=== PATIENT | male | born 1950 | race Two or more races ===

== ENCOUNTER 2025-07-14 18:24 | Inpatient (IN) | payer MEDICARE, MEDICAID ==
[~2025-07-14] VITALS: Ht 182.9 cm; Wt 85.4 kg
[2025-07-14 19:06] LABS: Hematocrit 42.0 % (41.0-53.0); Hemoglobin 14.2 g/dL (13.5-17.5); Mean Corpuscular Hemoglobin 33.5 pg (28.0-32.0); Mean Corpuscular Volume 98.6 fL (80.0-100.0); Nucleated Red Blood Cells % 0.2 %
--- NOTE | 2025-07-14 19:06 | ED.PDOC ---
HPI Comments 75 year old male presents to the ED via EMS with a chief complaint of chest pain. Patient states he had the flu about 1 week ago, since then has been experiencing intermittent chest pain and shortness of breath, fatigue. Patient currently lives in an assisted living facility, shared with staff his symptoms, called 911. Upon EMS arrival, EKG was abnormal, possible STEMI. Upon ED arrival, EKG was repeated, sent to Marketing Operations Specialist Dr. Talbot, recommended observation of patient. Denies dizziness, headache, nausea, vomiting, fever, chills, numbness/tingling, weakness. No other symptoms or modifying factors present at this time. Chief Complaint: Chest Pain Time Seen by MD: 18:55 Reviewed Notes: Medications, Allergies Allergies: Coded Allergies: NO KNOWN ALLERGIES (Unverified , 07/14/25) Information Source: Patient, Emergency Med Personnel Mode of Arrival: EMS Severity: Moderate Timing: Weeks Duration: Since onset Prehospital treatment: None Location: Chest (L) Onset: At Rest Cardiac Risk Factors: None PE Risk Factors: None History of: None Modifying Factors: Nothing Associated Signs and Symptoms: SOB Past Medical History PAST MEDICAL HISTORY: Denies Surgical History: Denies all surgeries Family History Family History: Reviewed,noncontributory to illness, No family hx of Cancer, No family hx of DM, No family hx of Heart armida, No family hx of HTN, No family hx ofKidney armida, No family hx of Liver armida, No family hx of Lung armida, No family hx of Stroke Social History Smoker: Non-Smoker Alcohol: Denies ETOH Use Drugs: Denies Drug Use Lives In: Assisted Care Constitutional: reports: fatigue; denies: chills, diaphoresis, fever, malaise, sweats, weakness, others EENTM: denies: blurred vision, double vision, ear bleeding, ear discharge, ear drainage, ear pain, ear ringing, eye pain, eye redness, hearing loss, mouth pain, mouth swelling, nasal discharge, nose bleeding, nose congestion, nose pain, photophobia, tearing, throat pain, throat swelling, voice changes, others Respiratory: reports: shortness of breath; denies: cough, hemoptysis, orthopnea, SOB at rest, SOB with excertion, stridor, wheezing, others Cardiovascular: reports: chest pain; denies: dizzy spells, diaphoresis, Dyspnea on exertion, edema, irregular heart beat, left arm pain, lightheadedness, palpitations, PND, syncope, others Gastrointestinal: denies: abdomen distended, abdominal pain, blood streaked bowels, constipated, diarrhea, dysphagia, difficulty swallowing, hematemesis, melena, nausea, poor appetite, poor fluid intake, rectal bleeding, rectal pain, vomiting, others Genitourinary: denies: burning, dysuria, flank pain, frequency, hematuria, incontinence, penile discharge, penile sore, pain, testicle pain, testicle swelling, urgency, others Neurological: denies: dizziness, fainting, headache, left sided numbness, left sided weakness, numbness, paresthesia, pre-existing deficit, right sided numbness, right sided weakness, seizure, speech problems, tingling, tremors, weakness, others Musculoskeletal: denies: back pain, gout, joint pain, joint swelling, muscle pain, muscle stiffness, neck pain, others Integumetry: denies: bruises, change in color, change in hair/nails, dryness, laceration, lesions, lumps, rash, wounds, others Allergic/Immunocompromised: denies: Difficulty Healing, Frequent Infections, Hives, Itching, others Hematologic/Lymphatic: denies: anemia, blood clots, easy bleeding, easy bruising, swollen glands, others Endocrine: denies: excessive hunger, excessive sweating, excessive thirst, excessive urination, flushing, intolerance to cold, intolerance to heat, unexplained weight gain, unexplained weight loss, others Psychiatric: denies: anxiety, bipolar disorder, depression, hopeless, panic disorder, schizophrenia, sleepless, suicidal, others All Other Systems: Reviewed and Negative Physical Exam General Appearance: Normal HEENT: Normal ENT Inspection, Pharynx Normal, TMs Normal Neck: Full Range of Motion, Non-Tender, Normal, Normal Inspection Respiratory: Chest Non-Tender, Lungs Clear, No Accessory Muscle Use, No Respiratory Distress, Normal Breath Sounds Cardiovascular: No Edema, No JVD, No Murmur, No Gallop, Normal Peripheral Pulse s, Regular Rate/Rhythm Breast Exam: Deferred Gastrointestinal: No Organomegaly, Non Tender, No Pulsatile Mass, Normal Bowel Sounds, Soft Genitalia: Deferred Pelvic: Deferred Rectal: Deferred Extremities: No calf tenderness, Normal capillary refill, Normal inspection, Normal range of motion, Non-tender, No pedal edema Musculoskeletal : Apperance: Normal Neurologic: Alert, button tufting machine operator II-XII nml as Tested, No Motor Deficits, Normal Affect, Normal Mood, No Sensory Deficits Cerebellar Function: Normal Reflexes: Normal Skin: Dry, Normal Color, Warm Lymphatic: No Adenopathy Was a procedure done? Was a procedure done?: No CP Differential Dx Differential Diagnosis: A-fib, A-Flutter, Angina, Anxiety / Panic Attack, Digoxin Toxicity, Electrolyte Disorder, Heart Failure, Hyperthyroidism, Hyperventilation, Hypoxia, MAT, [place], V-Fib, V-Tach, Other X-Ray, Labs, Meds, VS Vital Signs Date Time Temp Pulse Resp B/P (MAP) Pulse Ox O2 Delivery O2 Flow Rate FiO2 07/14/25 20:08 97 123/82 07/14/25 19:34 105 07/14/25 19:25 97.6 97 26 123/82 (96) 95 97.6 07/14/25 19:25 97 26 95 Room Air* 0 21 07/14/25 19:00 98.9 114 30 129/78 (95) 93 98.9 07/14/25 18:30 98.1 100 22 126/88 98 98.1 07/14/25 18:29 108 Lab Test 07/14/25 19:53 07/14/25 18:49 Range/Units Troponin I High Sensitivity 110 *H 107 *H </=54 ng/L White Blood Count 6.4 4.4-10.8 10^3/uL Red Blood Count 4.26 L 4.5-5.90 10^6/uL Hemoglobin 14.2 13.5-17.5 g/dL Hematocrit 42.0 41.0-53.0 % Mean Corpuscular Volume 98.6 80.0-100.0 fL Mean Corpuscular Hemoglobin 33.5 H 28.0-32.0 pg Mean Corpuscular Hemoglobin Concent 33.9 32.0-36.0 g/dL Red Cell Distribution Width 14.2 11.8-14.3 % Platelet Count 149 140-450 10^3/uL Mean Platelet Volume 8.7 6.9-10.8 fL Neutrophils (%) (Auto) 58.1 37.0-80.0 % Lymphocytes (%) (Auto) 29.9 10.0-50.0 % Monocytes (%) (Auto) 8.8 0.0-12.0 % Eosinophils (%) (Auto) 1.9 0.0-7.0 % Basophils (%) (Auto) 1.3 0.0-2.0 % Neutrophils # (Auto) 3.7 1.6-8.6 10 ^3/uL Lymphocytes # (Auto) 1.9 0.4-5.4 10 ^3/uL Monocytes # (Auto) 0.6 0-1.3 10 ^3/uL Eosinophils # (Auto) 0.1 0-0.8 10 ^3/uL Basophils # (Auto) 0.1 0-0.2 10 ^3/uL Nucleated Red Blood Cells 0.2 % Prothrombin Time 12.6 H 9.3-11.8 sec Prothrombin Time INR 1.21 H 0.9-1.15 Activated Partial Thromboplast Time 28.4 24.5-34.5 SEC Sodium Level 143 136-145 mmol/L Potassium Level 4.5 3.5-5.1 mmol/L Chloride Level 112 H 98-107 mmol/L Carbon Dioxide Level 21 20-31 mmol/L Anion Gap 10 5-15 Blood Urea Nitrogen 24 H 9-23 mg/dL Creatinine 1.35 H 0.700-1.30 mg/dL Glomerular Filtration Rate Calc 55 >90 mL/min BUN/Creatinine Ratio 17.8 10.0-20.0 Serum Glucose 134 H 74-106 mg/dL Calcium Level 9.0 8.7-10.4 mg/dL Total Bilirubin 0.8 0.2-1.0 mg/dL Aspartate Amino Transferase (AST) 33 13-40 U/L Alanine Aminotransferase (ALT) 36 7-40 U/L Alkaline Phosphatase 83 46-116 U/L B-Type Natriuretic Peptide 1794.20 0-100 pg/mL Total Protein 6.5 5.7-8.2 g/dL Albumin 3.9 3.2-4.8 g/dL Current Medications Medications (Trade) Dose Ordered Sig/Efrain Route Start Time Stop Time Status Last Admin Metoprolol Tartrate (Lopressor) 5 mg Q15M ONCE IV 07/14/25 18:45 07/14/25 18:47 DC 07/14/25 20:08 Aspirin 81 mg ONCE ONCE PO 07/14/25 19:00 07/14/25 19:01 DC 07/14/25 19:[address] [address] Ph: [phone] DIAGNOSTIC IMAGING Diagnostic Imaging Report : [id number] Signed PATIENT: RANDEE MARSH ACCT: [id number] UNIT: [id number] : 1950 LOC: ER ROOM / BED: / AGE / SEX: 75 / M ADM STATUS: REG ER SERVICE 44 ORDERING PHYSICIAN: TELMA PEÑA MD PROCEDURE(s): CXRP - CHEST PORTABLE REASON: SOB ORDER NUMBER(s): [id number], ACCESSION NUMBER(s): [id number] CHEST RADIOGRAPH Indication: SOB Technique: Single frontal view of the chest was obtained Comparison: XR CHEST 1 VIEW on DOS: 04/01/23 FINDINGS: Lines and Tubes: None Lungs: Costophrenic angles are not included on this study. Mildly prominent bronchovascular markings are noted in the right upper lung field and left lower lung field. There are no prior studies for comparison to determine acute versus chronic disease. Pleura: No effusion. No pneumothorax. Cardiomediastinal contours: Cardiac size appears to be at the upper limits of normal. Bones: No acute osseous abnormality. IMPRESSION: 1. Mildly prominent bronchovascular markings right upper lung field and right lower lung field. 2. Cardiac size is appears to be at the upper limits of normal. 3. No comparison studies for available. Findings may represent normal for the patient or congestive failure. Correlate with clinical setting. ATED BY: ELIAZAR AMBROSIO Jr., DO DICTATED DATE/TIME: 07/14/251913 SIGNED BY: ELIAZAR AMBROSIO Jr., SIGNED DATE/TIME: 07/14/251913 CC: Time of 1ST Reevaluation: 19:25 Reevaluation 1ST: Unchanged Patient Education/Counseling: Diagnosis, Treatment, Prognosis Family Education/Counseling: No Family Present SEPSIS Sepsis Screen Date sepsis recognized/suspect: Jul 14, 2025 Time Sepsis recognized/suspect: 183 Recent Procedure: No On Antibiotic Therapy: No Respiratory Rate >20: No Heart Rate >90: Yes Temp<36 C (96.8 F) or >38.3 C: No SBP <90 or MAP <65 mmHG: No New Acute Mental Status Change: No Is the patient on CPAP, BIPAP,: No Physician Orders Electrocardigram (07/14/25 18:37) Chest Portable (07/14/25 18:45) Troponin-I Hs (07/14/25 21:45) Vital Signs Date Time Temp Pulse Resp B/P (MAP) Pulse Ox O2 Delivery O2 Flow Rate FiO2 07/14/25 20:08 97 123/82 07/14/25 19:34 105 07/14/25 19:25 97.6 97 26 123/82 (96) 95 97.6 07/14/25 19:25 97 26 95 Room Air* 0 21 07/14/25 19:00 98.9 114 30 129/78 (95) 93 98.9 07/14/25 18:30 98.1 100 22 126/88 98 98.1 07/14/25 18:29 108 Laboratory Tests Test 07/14/25 18:49 White Blood Count 6.4 10^3/uL (4.4-10.8) Medications Medications Dose Ordered Sig/Efrain Route Start Time Stop Time Status Last Admin Dose Admin Aspirin 81 mg ONCE ONCE PO 07/14/25 19:00 07/14/25 19:01 DC 07/14/25 19:45 Metoprolol Tartrate 5 mg Q15M ONCE IV 07/14/25 18:45 07/14/25 18:47 DC 07/14/25 20:08 Departure 1 Departure Time of Disposition: 20:51 Impression: Primary Impression: Atrial fibrillation Additional Impression: Acute coronary syndrome with high troponin Disposition: ADMITTED INPATIENT Admit to: Tele Condition: Guarded Comments 75 year old male with SOB and chest tightness, noted to be in A-fib with LBBB, also later T wave depressions on EKG. Reviewed with cardiology Dr Talbot who recommends rate control and admission. given aspirin and metoprolol. initial troponins elevated Critical Care Note Critical Care Time?: Yes (35 min-critical care time only) Critical care comment: Total critical care time: Approximately 36 minutes Due to a high probability of clinically significant, life threatening deterioration, the patient required my highest level of preparedness to intervene emergently and I personally spent this critical care time directly and personally managing the patient. This critical care time included obtaining a history; examining the patient; pulse oximetry; ordering and review of studies; arranging urgent treatment with development of a management plan; evaluation of patient's response to treatment; frequent reassessment; and, discussions with other providers. This critical care time was performed to assess and manage the high probability of imminent, life-threatening deterioration that could result in multi-organ failure. It was exclusive of separately billable procedures and treating other patients. Stability Stability form required: No Heart Score Heart Score: Heart Score Response (Comments) Value History Moderate Suspicious [address]-Deviation 2 Age >65 2 Risk Factors 1 or 2 risk factors 1 Troponin 1-2 x's Normal limit 1 Total 7 I personally scribed for TELMA PEÑA MD ([email or web address]) on 07/14/25 at 19:06. Electronically submitted by Georgia Simpson ([email or web address]). I personally scribed for TELMA PEÑA MD ([email or web address]) on 07/14/25 at 19:37. Electronically submitted by Georgia Smipson ([email or web address]). TELMA PEÑA MD Jul 14, 2025 19:06
--- NOTE | 2025-07-14 19:17 | DVH ---
CHEST RADIOGRAPH Indication: SOB Technique: Single frontal view of the chest was obtained Comparison: XR CHEST 1 VIEW on DOS: 04/01/23 FINDINGS: Lines and Tubes: None Lungs: Costophrenic angles are not included on this study. Mildly prominent bronchovascular markings are noted in the right upper lung field and left lower lung field. There are no prior studies for comparison to determine acute versus chronic disease. Pleura: No effusion. No pneumothorax. Cardiomediastinal contours: Cardiac size appears to be at the upper limits of normal. Bones: No acute osseous abnormality. IMPRESSION: 1. Mildly prominent bronchovascular markings right upper lung field and right lower lung field. 2. Cardiac size is appears to be at the upper limits of normal. 3. No comparison studies for available. Findings may represent normal for the patient or congestive failure. Correlate with clinical setting.
[2025-07-14 19:21] LABS: INR 1.21 (0.9-1.15); Partial Thromboplastin Time 28.4 SEC (24.5-34.5); Prothrombin Time 12.6 sec (9.3-11.8)
[2025-07-14 19:25] VITALS: PULSE 97; RESP 26; O2SAT 95
[2025-07-14 19:27] LABS: Alanine Aminotransferase 36 U/L (7-40); Albumin 3.9 g/dL (3.2-4.8); Alkaline Phosphatase 83 U/L (46-116); Anion Gap 10 (5-15); BUN/Creatinine Ratio 17.8 (10.0-20.0); Calcium 9.0 mg/dL (8.7-10.4); Carbon Dioxide 21 mmol/L (20-31); Potassium 4.5 mmol/L (3.5-5.1); Sodium 143 mmol/L (136-145); Total Protein 6.5 g/dL (5.7-8.2)
[2025-07-14 19:28] LABS: Bilirubin, Total 0.8 mg/dL (0.2-1.0); Blood Urea Nitrogen 24 mg/dL (9-23); Chloride 112 mmol/L (98-107); Glucose 134 mg/dL (74-106)
[2025-07-14] MEDS: METOPROLOL TARTRATE 1MG/1ML-5ML VIAL IV ONE (20:08)
[2025-07-14] MEDS ORDERED: MORPHINE SULFATE INJ 2 MG/ml SYRG IV PRN (21:00)
[2025-07-14] MEDS ORDERED: HYDROcodone-ACET 5/325MG TAB PO PRN (21:00)
[2025-07-14] MEDS ORDERED: NITROGLYCERIN 0.4 MG SL TAB SL PRN (21:00)
[2025-07-14] MEDS ORDERED: ACETAMINOPHEN 325 MG TAB PO PRN (21:00)
--- NOTE | 2025-07-14 21:02 | DVHHP2 ---
History of Present Illness HPI 75 year old male presents to the ED via EMS with a chief complaint of chest pain. Patient states he had the flu about 1 week ago, since then has been experiencing intermittent chest pain and shortness of breath, fatigue. Patient currently lives in an assisted living facility, shared with staff his symptoms, called 911. Upon EMS arrival, EKG was abnormal, possible STEMI. Upon ED arrival, EKG was repeated, sent to Driver Utility Worker Dr. Talbot, recommended observation of patient. Denies dizziness, headache, nausea, vomiting, fever, chills, numbness/tingling, weakness. No other symptoms or modifying factors present at this time. Home Meds Reported Medications Quetiapine Fumerate (Seroquel) 50 Mg Tab, 1 TAB PO TID, #30 TAB 2 Refills 07/15/25 Famotidine (PEPCID TABLET) 20 Mg Tb, 1 TAB PO DAILY, #60 TAB 5 Refills 07/15/25 Tamsulosin Hcl (Flomax) 0.4 Mg Cap, CAP PO DAILY, #30 CAP 11 Refills 07/15/25 Divalproex Sodium (Depakote) 250 Mg Tab, 1 TAB PO BID, #60 TAB 2 Refills 07/15/25 Review of Systems Constitutional: No symptom reported Eyes: No symptom reported Pulmonary/Respiratory: No symptom reported Cardiovascular: No symptom reported Gastrointestinal: No symptom reported Genitourinary: No symptom reported H&P Exam Vital Signs Vital Signs Date Time Temp Pulse Resp B/P (MAP) Pulse Ox O2 Delivery O2 Flow Rate FiO2 07/14/25 20:08 97 123/82 07/14/25 19:25 97.6 26 95 97.6 07/14/25 19:25 Room Air* 0 21 General Appeara: Well developed, Well nourished, Normal Appearance Head Exam: Normal inspection Neck Exam: Normal inspection SEPSIS Sepsis Screen Date sepsis recognized/suspect: Jul 14, 2025 Time Sepsis recognized/suspect: 1924 Recent Procedure: No On Antibiotic Therapy: No Respiratory Rate >20: Yes Heart Rate >90: No Temp<36 C (96.8 F) or >38.3 C: No SBP <90 or MAP <65 mmHG: No New Acute Mental Status Change: No Is the patient on CPAP, BIPAP,: No Physician Orders Electrocardigram (07/14/25 18:37) Chest Portable (07/14/25 18:45) Troponin-I Hs (07/14/25 21:45) Admit (07/14/25 21:00) Code Status (07/14/25 21:00) Hydrocodone-Acet 5/325mg Tab ([place] /32 (07/14/25 21:00) Fall Risk Precautions In Place QSHIFT (07/14/25 21:00) Complete Blood Count (07/15/25 04:00) Comprehensive Metabolic Panel (07/15/25 04:00) Condition: Serious (07/14/25 21:00) Acetaminophen Tablet (Tylenol Tablet) (07/14/25 21:00) Morphine Sulfate Injection (07/14/25 21:00) Lovenox 40mg (07/14/25 21:00) Nitroglycerin Sublingual (Ntrostat Subli (07/14/25 21:00) Morphine Sulfate Injection (07/14/25 21:00) Stat Ekg For Chest Pain (07/14/25 21:00) Notify Md Of Changes From Base (07/14/25 21:00) Hydrogen Braze Furnace Operator For 24 Hours (07/14/25 21:00) Emergency Dysrhythmia Protocol (07/14/25 21:00) Rhythm Strips Once Every Shift (07/14/25 21:00) Vital Signs Date Time Temp Pulse Resp B/P (MAP) Pulse Ox O2 Delivery O2 Flow Rate FiO2 07/14/25 20:08 97 123/82 07/14/25 19:34 105 07/14/25 19:25 97.6 97 26 123/82 (96) 95 97.6 07/14/25 19:25 97 26 95 Room Air* 0 21 07/14/25 19:00 98.9 114 30 129/78 (95) 93 98.9 07/14/25 18:30 98.1 100 22 126/88 98 98.1 07/14/25 18:29 108 Laboratory Tests Test 07/14/25 18:49 White Blood Count 6.4 10^3/uL (4.4-10.8) Medications Medications Dose Ordered Sig/Efrain Route Start Time Stop Time Status Last Admin Dose Admin Aspirin 81 mg ONCE ONCE PO 07/14/25 19:00 07/14/25 19:01 DC 07/14/25 19:45 81 MG Metoprolol Tartrate 5 mg Q15M ONCE IV 07/14/25 18:45 07/14/25 18:47 DC 07/14/25 20:08 5 MG Labs/Xrays Labs Test 07/14/25 19:53 07/14/25 18:49 Range/Units Troponin I High Sensitivity 110 *H </=54 ng/L White Blood Count 6.4 4.4-10.8 10^3/uL Red Blood Count 4.26 L 4.5-5.90 10^6/uL Hemoglobin 14.2 13.5-17.5 g/dL Hematocrit 42.0 41.0-53.0 % Mean Corpuscular Volume 98.6 80.0-100.0 fL Mean Corpuscular Hemoglobin 33.5 H 28.0-32.0 pg Mean Corpuscular Hemoglobin Concent 33.9 32.0-36.0 g/dL Red Cell Distribution Width 14.2 11.8-14.3 % Platelet Count 149 140-450 10^3/uL Mean Platelet Volume 8.7 6.9-10.8 fL Neutrophils (%) (Auto) 58.1 37.0-80.0 % Lymphocytes (%) (Auto) 29.9 10.0-50.0 % Monocytes (%) (Auto) 8.8 0.0-12.0 % Eosinophils (%) (Auto) 1.9 0.0-7.0 % Basophils (%) (Auto) 1.3 0.0-2.0 % Neutrophils # (Auto) 3.7 1.6-8.6 10 ^3/uL Lymphocytes # (Auto) 1.9 0.4-5.4 10 ^3/uL Monocytes # (Auto) 0.6 0-1.3 10 ^3/uL Eosinophils # (Auto) 0.1 0-0.8 10 ^3/uL Basophils # (Auto) 0.1 0-0.2 10 ^3/uL Nucleated Red Blood Cells 0.2 % Prothrombin Time 12.6 H 9.3-11.8 sec Prothrombin Time INR 1.21 H 0.9-1.15 Activated Partial Thromboplast Time 28.4 24.5-34.5 SEC Sodium Level 143 136-145 mmol/L Potassium Level 4.5 3.5-5.1 mmol/L Chloride Level 112 H 98-107 mmol/L Carbon Dioxide Level 21 20-31 mmol/L Anion Gap 10 5-15 Blood Urea Nitrogen 24 H 9-23 mg/dL Creatinine 1.35 H 0.700-1.30 mg/dL Glomerular Filtration Rate Calc 55 >90 mL/min BUN/Creatinine Ratio 17.8 10.0-20.0 Serum Glucose 134 H 74-106 mg/dL Calcium Level 9.0 8.7-10.4 mg/dL Total Bilirubin 0.8 0.2-1.0 mg/dL Aspartate Amino Transferase (AST) 33 13-40 U/L Alanine Aminotransferase (ALT) 36 7-40 U/L Alkaline Phosphatase 83 46-116 U/L B-Type Natriuretic Peptide 1794.20 0-100 pg/mL Total Protein 6.5 5.7-8.2 g/dL Albumin 3.9 3.2-4.8 g/dL Assessment/Plan Primary Diagnosis 75 year old male presents to the ED via EMS with a chief complaint of chest pain. Patient states he had the flu about 1 week ago, since then has been experiencing intermittent chest pain and shortness of breath, fatigue. Patient currently lives in an assisted living facility, shared with staff his symptoms, called 911. Upon EMS arrival, EKG was abnormal, possible STEMI. Upon ED arrival, EKG was repeated, sent to Driver Utility Worker Dr. Talbot, recommended observation of patient. Denies dizziness, headache, nausea, vomiting, fever, chills, numbness/t ingling, weakness. No other symptoms or modifying factors present at this time. afib hypoxia LBBB ckd htn HLD suspected NSTEMI chest pain admitted to tele consult to cardiology pain control Plan discussed with: Patient SERA LANGSTON Jul 14, 2025 21:02
[2025-07-14] MEDS: ENOXAPARIN SOD 40 MG/0.4 ML SYRINGE SC SCH (21:25)
[2025-07-14 23:01] VITALS: BP 109/78; PULSE 109; RESP 18; TEMP 96.6; O2SAT 2; O2SAT 97
[2025-07-14] MEDS ORDERED: guaiFENesin-DM 100/10mg/5ml SYR PO PRN (23:45)
[2025-07-15] VITALS (7 sets, daily range): BP systolic 105–126; BP diastolic 73–83; PULSE 60–125; RESP 18–20; TEMP 97.6–98.6; O2SAT 92–98
[2025-07-15] MEDS ORDERED: guaiFENesin-DM 100/10mg/5ml SYR PO PRN
[2025-07-15] MEDS: guaiFENesin-DM 100/10mg/5ml SYR PO PRN (00:26)
[2025-07-15] MEDS ORDERED: FAMO20TA10 PO (00:48)
[2025-07-15] MEDS ORDERED: DIVA-139 PO (00:48)
[2025-07-15] MEDS ORDERED: TAMS-35 PO (00:48)
[2025-07-15] MEDS ORDERED: QUET50TA PO (00:50)
--- NOTE | 2025-07-15 05:13 | ECG ---
[facility] Test Date: 2025-07-14 Test Time: 19:34:00 Pat Name: RANDEE MARSH Department: ED Room: 0238T Gender: M Ancillary Specialist: YOHANA : 1950 Requested By: TELMA PEÑA Order Number: [id number] Reading MD: Lamine Talbot Measurements Intervals [place] Rate: 105 P: 0 MS: 0 QRS: -71 QRSD: 163 T: 105 QT: 399 QTc: 528 Interpretive Statements Atrial fibrillation LVH with IVCD, LAD and secondary repol abnrm Inferior infarct, acute (RCA) Prolonged QT interval Probable RV involvement, suggest recording right precordial leads Electronically Signed On 07-20-2025 14:46:03 PST by Lamine Talbot Please click the below link to view image of tracing.
[2025-07-15] MEDS ORDERED: HALOPERIDOL LACTATE 5 MG/ML INJ VIAL IV PRN (05:30)
[2025-07-15] MEDS: LORazepam 2MG/ML-1ML VIAL IV PRN ×2 (06:06→14:11)
[2025-07-15 06:21] LABS: Albumin 4.1 g/dL (3.2-4.8); Alkaline Phosphatase 84 U/L (46-116); Anion Gap 13 (5-15); BUN/Creatinine Ratio 22.4 (10.0-20.0); Bilirubin, Total 0.9 mg/dL (0.2-1.0); Calcium 9.4 mg/dL (8.7-10.4); Glucose 76 mg/dL (74-106); Sodium 143 mmol/L (136-145); Total Protein 6.7 g/dL (5.7-8.2)
[2025-07-15 06:27] LABS: Alanine Aminotransferase 40 U/L (7-40); Blood Urea Nitrogen 30 mg/dL (9-23); Carbon Dioxide 17 mmol/L (20-31); Chloride 113 mmol/L (98-107); Potassium 5.3 mmol/L (3.5-5.1)
[2025-07-15 11:53] LABS: Hematocrit 44.1 % (41.0-53.0); Hemoglobin 14.7 g/dL (13.5-17.5); Mean Corpuscular Hemoglobin 33.0 pg (28.0-32.0); Mean Corpuscular Volume 98.9 fL (80.0-100.0); Nucleated Red Blood Cells % 0.2 %
[2025-07-15] MEDS ORDERED: LORazepam 2MG/ML-1ML VIAL IV PRN (13:15)
[2025-07-15] MEDS: ALPRAZolam 0.5 MG TAB PO PRN (16:33)
[2025-07-15] MEDS: NICOTINE 14 MG/24HR TOPICAL PATCH TD ONE (17:28)
[2025-07-15] MEDS: MUPIROCIN 2% OINT 15gm or 22gm FOR MRSA NARES EACHNOSTRI SCH (21:51)
--- NOTE | 2025-07-15 22:50 | DVHPN2 ---
Progress Note Date Seen: Jul 15, 2025 Medical Necessity Reason Pt with a Central, PICC or Fol: No Objective vital signs Vital Sign Date Time Temp Pulse Resp B/P (MAP) Pulse Ox O2 Delivery O2 Flow Rate FiO2 07/15/25 16:53 97.9 60 18 119/73 (88) 98 97.9 07/15/25 10:45 Nasal Cannula* 2 28 Total Intake and Output 07/14/25 07/14/25 07/15/25 15:00 23:00 07:00 Intake Total 250 ml Balance 250 ml medications Current Medications Medications Dose Ordered Sig/Efrain Route Start Time Stop Time Status Last Admin Dose Admin Acetaminophen/ Hydrocodone Bitart 1 tab Q4HP PRN PO 07/14/25 21:00 Acetaminophen 650 mg Q6HP PRN PO 07/14/25 21:00 Morphine Sulfate 2 mg Q4HPRN PRN IV 07/14/25 21:00 Enoxaparin Sodium 40 mg DAILY SC 07/14/25 21:00 07/15/25 11:24 40 MG Nitroglycerin 0.4 mg Q5MINP PRN SL 07/14/25 21:00 Morphine Sulfate 2 mg Q30M PRN IV 07/14/25 21:00 Guaifenesin/ Dextromethorphan 10 ml Q4HP PRN PO 07/14/25 23:45 Cancel Guaifenesin/ Dextromethorphan 5 ml Q4HP PRN PO 07/15/25 00:00 Cancel Guaifenesin/ Dextromethorphan 5 ml Q4HP PRN PO 07/15/25 00:15 07/15/25 11:26 5 ML Lorazepam 1 mg Q6H PRN IV 07/15/25 13:15 07/15/25 21:46 1 MG Mupirocin 1 applic BID EACHNOSTRI 07/15/25 22:00 07/20/25 21:59 Alprazolam 1 mg BID PRN PO 07/15/25 14:15 07/15/25 16:33 1 MG Nicotine 1 patch DAILY TD 07/16/25 10:00 laboratory and microbiology Laboratory Tests 07/15/25 11:44 07/15/25 05:17 Test 07/15/25 05:17 Range/Units Serum Glucose 76 74-106 mg/dL Microbiology Date/Time Source Procedure Growth Status 07/15/25 01:24 Nose MRSA Screen - Final Methicillin Resistant S.aureus Complete Labs and/or images reviewed: Labs reviewed by me, Image(s) reviewed by me Problem List/Assessment/Plan Problem List/Assessment/Plan 75 year old male presents to the ED via EMS with a chief complaint of chest pain. Patient states he had the flu about 1 week ago, since then has been experiencing intermittent chest pain and shortness of breath, fatigue. Patient currently lives in an assisted living facility, shared with staff his symptoms, called 911. Upon EMS arrival, EKG was abnormal, possible STEMI. Upon ED arrival, EKG was repeated, sent to Snow Removal Supervisor Dr. Talbot, recommended observation of patient. Denies dizziness, headache, nausea, vomiting, fever, chills, numbness/tingling, weakness. No other symptoms or modifying factors present at this time. afib hypoxia LBBB ckd htn HLD suspected NSTEMI chest pain admitted to tele consult to cardiology pain control evaluation per cardiology Plan discussed with: Patient My Orders My Orders Orders - SERA LANGSTON DO Procedure Category Date Status Time Cardiac DIET 07/15/25 Transmitted Diet-2gna,Lofat,Lochol Breakfast Guaifenesin-Dextromet PHA 07/15/25 In Process Liquid (Robitussin 00:15 Lorazepam 2mg/Ml Inj PHA 07/15/25 In Process (Ativan Inj) 13:15 Mupirocin 2% Oint PHA 07/15/25 In Process Mrsa Nares (Bactroban 22:00 Alprazolam Tablet PHA 07/15/25 In Process (Xanax Tablet) 14:15 Nicotine 14mg/24hr PHA 07/16/25 In Process (Nicoderm 14mg/24hr) 10:00 SERA LANGSTON DO Jul 15, 2025 22:50
[2025-07-15] MEDS: ALBUTEROL SULF 2.5 MG/0.5ML(0.5%) NEB SOLN NEB PRN (23:15)
[2025-07-16] VITALS (11 sets, daily range): BP systolic 105–126; BP diastolic 59–86; PULSE 78–125; RESP 18–22; TEMP 97.2–98.4; O2SAT 94–99
[2025-07-16] MEDS: FUROSEMIDE 100 MG/10ML VIAL IV ONE (01:25)
[2025-07-16] MEDS: NICOTINE 14 MG/24HR TOPICAL PATCH TD SCH (10:38)
[2025-07-16 12:49] LABS: Potassium 4.2 mmol/L (3.5-5.1); Sodium 145 mmol/L (136-145)
[2025-07-16 12:50] LABS: Anion Gap 7 (5-15); Calcium 9.6 mg/dL (8.7-10.4); Carbon Dioxide 29 mmol/L (20-31)
[2025-07-16 12:52] LABS: Chloride 109 mmol/L (98-107)
[2025-07-16 12:55] LABS: BUN/Creatinine Ratio 24.1 (10.0-20.0); Glucose 100 mg/dL (74-106)
[2025-07-16 12:56] LABS: Blood Urea Nitrogen 33 mg/dL (9-23)
[2025-07-16 13:59] LABS: Hematocrit 44.1 % (41.0-53.0); Hemoglobin 14.7 g/dL (13.5-17.5); Mean Corpuscular Hemoglobin 33.3 pg (28.0-32.0); Mean Corpuscular Volume 99.7 fL (80.0-100.0); Nucleated Red Blood Cells % 0.2 %
--- NOTE | 2025-07-16 14:07 | DVHINCON2 ---
Date of service: Jul 16, 2025 History of Present Illness 75 yo M poor historian admitted for nstemi and afib. we were consulted and saw pt within 1 hour of consult today. pt had elevated trop . ecg showed afib and LBBB. pt deneis a hx of afib. pt is yelling and screaming. he wants to leave to go protect his guitar . pt is on o2 for now Past Medical History reviewed Allergies: Coded Allergies: NO KNOWN ALLERGIES (Unverified , 07/14/25) Home Meds Reported Medications Quetiapine Fumerate (Seroquel) 50 Mg Tab, 1 TAB PO TID, #30 TAB 2 Refills 07/15/25 Famotidine (PEPCID TABLET) 20 Mg Tb, 1 TAB PO DAILY, #60 TAB 5 Refills 07/15/25 Tamsulosin Hcl (Flomax) 0.4 Mg Cap, CAP PO DAILY, #30 CAP 11 Refills 07/15/25 Divalproex Sodium (Depakote) 250 Mg Tab, 1 TAB PO BID, #60 TAB 2 Refills 07/15/25 Current Medications Current Medications Medications (Trade) Dose Ordered Sig/Efrain Route PRN Reason Start Time Stop Time Status Last Admin Mupirocin (Bactroban 2% Ointment) 1 applic BID EACHNOSTRI 07/15/25 22:00 07/20/25 21:59 Alprazolam (Xanax Tablet) 1 mg BID PRN PO ANXIETY 07/15/25 14:15 07/16/25 12:09 Nicotine (Nicoderm 14MG/ 24HR) 1 patch DAILY TD 07/16/25 10:00 07/16/25 10:38 Albuterol (Ventolin Medneb) 2.5 mg Q4HPRN PRN NEB SHORTNESS OF BREATH 07/15/25 23:00 07/15/25 23:15 Aspirin 81 mg DAILY PO 07/16/25 10:00 07/16/25 10:29 Review of Systems +sob +chills +recent flu Vital Signs Vital Signs Date Time Temp Pulse Resp B/P (MAP) Pulse Ox O2 Delivery O2 Flow Rate FiO2 07/16/25 10:00 97 Nasal Cannula* 4 36 07/16/25 08:51 97.3 113 20 117/79 (92) 97.3 Physical Exam ill appearing,disheveled s1 s2 irregular diffuse rhonchi abd soft nt/nd no edema Labs/Diagnostic Data Labs Test 07/16/25 13:46 07/16/25 12:00 07/15/25 05:17 07/14/25 18:49 Range/Units White Blood Count 7.1 4.4-10.8 10^3/uL Red Blood Count 4.43 L 4.5-5.90 10^6/uL Hemoglobin 14.7 13.5-17.5 g/dL Hematocrit 44.1 41.0-53.0 % Mean Corpuscular Volume 99.7 80.0-100.0 fL Mean Corpuscular Hemoglobin 33.3 H 28.0-32.0 pg Mean Corpuscular Hemoglobin Concent 33.4 32.0-36.0 g/dL Red Cell Distribution Width 14.1 11.8-14.3 % Platelet Count 161 140-450 10^3/uL Mean Platelet Volume 8.4 6.9-10.8 fL Neutrophils (%) (Auto) 58.7 37.0-80.0 % Lymphocytes (%) (Auto) 31.5 10.0-50.0 % Monocytes (%) (Auto) 7.8 0.0-12.0 % Eosinophils (%) (Auto) 1.2 0.0-7.0 % Basophils (%) (Auto) 0.8 0.0-2.0 % Neutrophils # (Auto) 4.2 1.6-8.6 10 ^3/uL Lymphocytes # (Auto) 2.2 0.4-5.4 10 ^3/uL Monocytes # (Auto) 0.6 0-1.3 10 ^3/uL Eosinophils # (Auto) 0.1 0-0.8 10 ^3/uL Basophils # (Auto) 0.1 0-0.2 10 ^3/uL Nucleated Red Blood Cells 0.2 % Sodium Level 145 136-145 mmol/L Potassium Level 4.2 3.5-5.1 mmol/L Chloride Level 109 H 98-107 mmol/L Carbon Dioxide Level 29 # 20-31 mmol/L Anion Gap 7 5-15 Blood Urea Nitrogen 33 H 9-23 mg/dL Creatinine 1.37 H 0.700-1.30 mg/dL Glomerular Filtration Rate Calc 54 >90 mL/min BUN/Creatinine Ratio 24.1 H 10.0-20.0 Serum Glucose 100 74-106 mg/dL Calcium Level 9.6 8.7-10.4 mg/dL Troponin I High Sensitivity 145 *H </=54 ng/L Total Bilirubin 0.9 0.2-1.0 mg/dL Aspartate Amino Transferase (AST) 44 H 13-40 U/L Alanine Aminotransferase (ALT) 40 7-40 U/L Alkaline Phosphatase 84 46-116 U/L Total Protein 6.7 5.7-8.2 g/dL Albumin 4.1 3.2-4.8 g/dL Prothrombin Time 12.6 H 9.3-11.8 sec Prothrombin Time INR 1.21 H 0.9-1.15 Activated Partial Thromboplast Time 28.4 24.5-34.5 SEC B-Type Natriuretic Peptide 1794.20 0-100 pg/mL Microbiology Date/Time Source Procedure Growth Status 07/15/25 01:24 Nose MRSA Screen - Final Methicillin Resistant S.aureus Complete Assessment afib hypoxia LBBB ckd htn HL Plan/Recommendation cont o2 check echo for lvef diuretics prn rate control start doac/lovenox for cva prevention pt very angry but not likey to be stable for dc at this time d/w RN Plan discussed with: Patient JESSICA KING MD Jul 16, 2025 14:07
[2025-07-16] MEDS: APIXABAN 5 MG TAB PO SCH (21:45)
[2025-07-16] MEDS: CARVEDILOL 3.125 MG TAB PO SCH (21:45)
[2025-07-16] MEDS: MORPHINE SULFATE INJ 2 MG/ml SYRG IV PRN (21:46)
[2025-07-17] VITALS (9 sets, daily range): BP systolic 95–116; BP diastolic 48–97; PULSE 66–101; RESP 14–18; TEMP 97.6–98.8; O2SAT 95–99
--- NOTE | 2025-07-17 10:23 | DVHSR ---
APPROVED REPORT EXAM: Two-dimensional and M-mode echocardiogram with Doppler and color Doppler. Blood Pressure: 117/79 mmHg INDICATION CHF LBBB NSTEMI RISK FACTORS Height: 6'0", Weight: 200 DIMENSIONS LVDd 7.9 (3.8-5.7cm) LA (2D) 4.1 (1.9-4.0cm) Aortic Root 5.5 (2.0-3.7cm) LVDs 7.4 (2.5-4.0cm) LA (MM) (1.9-4.0cm) Aortic Cusp Exc 1.9 (1.5-2.0cm) EF (%) 15.0 (55-70%) Rt. Atrium 5.9 (1.9-4.0cm) Asc. Aorta cm IVSd 1.4 (0.7-1.1cm) RV (D) 4.4 (1.8-2.4cm) PWd 1.4 (0.7-1.1cm) Mitral Valve Mitral Mitral Stenosis E wave 1.02m/s MV Mean GR. mmHg E/A ratio 0.0 2D MVA cm2 Aortic Valve Aortic Valve Aortic Stenosis V1 0.87m/s AO Mean GR. 28mmHg V2 3.44m/s AO Peak GR. 48mmHg LVOT Diameter 2.9 (1.8-2.4cm) Doppler SPIKE 1.67cm2 Pulmonic Valve V2 0.94m/s Tricuspid Valve TR Velocity 3.11m/s RVSP 47mmHg Other Information Technically limited study due to body habitus. Conclusion lvef 10% end stage dilated cardiomyoathy RV dysfunction biatrial enlargement likely severe , mean gradient of 23 mmhg prob low flow , severe aoritc regurg severe mitral regurg RVSP not assessed TR not well seen trivial to small pericardial effusion pleural effusion noted
--- NOTE | 2025-07-17 11:54 | DVHPN2 ---
Progress Note Date Seen: Jul 17, 2025 Medical Necessity Reason Pt with a Central, PICC or Fol: No Objective vital signs Vital Sign Date Time Temp Pulse Resp B/P (MAP) Pulse Ox O2 Delivery O2 Flow Rate FiO2 07/17/25 09:59 68 95/67 07/17/25 08:53 98.2 14 97 98.2 07/16/25 20:00 Nasal Cannula* 2 28 Total Intake and Output 07/16/25 07/16/25 07/17/25 15:00 23:00 07:00 Intake Total 464 ml 500 ml Output Total 300 ml Balance 464 ml 200 ml medications Current Medications Medications Dose Ordered Sig/Efrain Route Start Time Stop Time Status Last Admin Dose Admin Acetaminophen/ Hydrocodone Bitart 1 tab Q4HP PRN PO 07/14/25 21:00 Acetaminophen 650 mg Q6HP PRN PO 07/14/25 21:00 Morphine Sulfate 2 mg Q4HPRN PRN IV 07/14/25 21:00 07/17/25 04:53 2 MG Nitroglycerin 0.4 mg Q5MINP PRN SL 07/14/25 21:00 Morphine Sulfate 2 mg Q30M PRN IV 07/14/25 21:00 Guaifenesin/ Dextromethorphan 10 ml Q4HP PRN PO 07/14/25 23:45 Cancel Guaifenesin/ Dextromethorphan 5 ml Q4HP PRN PO 07/15/25 00:00 Cancel Guaifenesin/ Dextromethorphan 5 ml Q4HP PRN PO 07/15/25 00:15 07/16/25 21:45 5 ML Lorazepam 1 mg Q6H PRN IV 07/15/25 13:15 07/15/25 21:46 1 MG Mupirocin 1 applic BID EACHNOSTRI 07/15/25 22:00 07/20/25 21:59 Alprazolam 1 mg BID PRN PO 07/15/25 14:15 07/16/25 12:09 1 MG Nicotine 1 patch DAILY TD 07/16/25 10:00 07/17/25 09:58 1 PATCH Aspirin 81 mg DAILY PO 07/16/25 10:00 07/17/25 10:00 81 MG Apixaban 5 mg BID PO 07/16/25 22:00 07/17/25 10:00 5 MG Carvedilol 6.25 mg Q12HR PO 07/16/25 22:00 07/17/25 09:59 6.25 MG Examination: GENERAL:Normal, HEENT:Normal, NECK:Normal, LUNGS:Normal laboratory and microbiology Laboratory Tests 07/16/25 13:46 07/16/25 12:00 Test 07/16/25 12:00 Range/Units Serum Glucose 100 74-106 mg/dL Microbiology Date/Time Source Procedure Growth Status 07/15/25 01:24 Nose MRSA Screen - Final Methicillin Resistant S.aureus Complete Labs and/or images reviewed: Labs reviewed by me, Image(s) reviewed by me Problem List/Assessment/Plan Problem List/Assessment/Plan 75 year old male presents to the ED via EMS with a chief complaint of chest pain. Patient states he had the flu about 1 week ago, since then has been experiencing intermittent chest pain and shortness of breath, fatigue. Patient currently lives in an assisted living facility, shared with staff his symptoms, called 911. Upon EMS arrival, EKG was abnormal, possible STEMI. Upon ED arrival, EKG was repeated, sent to [facility] Dr. Talbot, recommended observation of patient. Denies dizziness, headache, nausea, vomiting, fever, chills, numbness/tingling, weakness. No other symptoms or modifying factors present at this time. afib hypoxia LBBB ckd htn HLD suspected NSTEMI chest pain admitted to tele consult to cardiology pain control evaluation per cardiology Plan discussed with: Patient My Orders My Orders Orders - SERA LANGSTON DO Procedure Category Date Status Time * Cardiology Consult CONS 07/16/25 Transmitted 12:13 Quetiapine Fumarate PHA 07/17/25 Transmitted Tablet (Seroquel Tab 22:[address] Tablet PHA 07/17/25 Transmitted (Depakote "Dr" Tabl 22:00 SERA LANGSTON DO Jul 17, 2025 11:54
[2025-07-18 05:00] VITALS: BP 121/70; PULSE 87; RESP 18; TEMP 96.6; O2SAT 90
[2025-07-18 08:00] VITALS: PULSE 74
--- NOTE | 2025-07-18 11:38 | DVHPN2 ---
Progress Note Date Seen: Jul 18, 2025 Medical Necessity Reason Pt with a Central, PICC or Fol: No Subjective Other Systems: pt swearing at staff, stating not to enter room unless meds Objective vital signs Vital Sign Date Time Temp Pulse Resp B/P (MAP) Pulse Ox O2 Delivery O2 Flow Rate FiO2 07/18/25 10:01 Nasal Cannula 3.0 07/18/25 10:01 32 07/18/25 10:00 86 89/48 07/18/25 05:00 96.6 18 90 96.6 Total Intake and Output 07/17/25 07/17/25 07/18/25 15:00 23:00 07:00 Intake Total 460 ml 440 ml Output Total 500 ml 600 ml Balance -40 ml -160 ml medications Current Medications Medications Dose Ordered Sig/Efrain Route Start Time Stop Time Status Last Admin Dose Admin Acetaminophen/ Hydrocodone Bitart 1 tab Q4HP PRN PO 07/14/25 21:00 Acetaminophen 650 mg Q6HP PRN PO 07/14/25 21:00 Morphine Sulfate 2 mg Q4HPRN PRN IV 07/14/25 21:00 07/17/25 17:35 2 MG Nitroglycerin 0.4 mg Q5MINP PRN SL 07/14/25 21:00 Morphine Sulfate 2 mg Q30M PRN IV 07/14/25 21:00 Guaifenesin/ Dextromethorphan 10 ml Q4HP PRN PO 07/14/25 23:45 Cancel Guaifenesin/ Dextromethorphan 5 ml Q4HP PRN PO 07/15/25 00:00 Cancel Guaifenesin/ Dextromethorphan 5 ml Q4HP PRN PO 07/15/25 00:15 07/16/25 21:45 5 ML Lorazepam 1 mg Q6H PRN IV 07/15/25 13:15 07/15/25 21:46 1 MG Mupirocin 1 applic BID EACHNOSTRI 07/15/25 22:00 07/20/25 21:59 07/18/25 10:13 1 APPLIC Alprazolam 1 mg BID PRN PO 07/15/25 14:15 07/17/25 21:15 1 MG Nicotine 1 patch DAILY TD 07/16/25 10:00 07/18/25 10:13 1 PATCH Aspirin 81 mg DAILY PO 07/16/25 10:00 07/18/25 10:13 81 MG Apixaban 5 mg BID PO 07/16/25 22:00 07/18/25 10:13 5 MG Carvedilol 6.25 mg Q12HR PO 07/16/25 22:00 07/17/25 21:14 6.25 MG Quetiapine Fumarate 100 mg BID PO 07/17/25 22:00 07/18/25 10:13 100 MG Divalproex Sodium 500 mg BID PO 07/17/25 22:00 07/18/25 10:13 500 MG Examination: GENERAL:Abnormal, HEENT:Abnormal, LUNGS:Abnormal, CVS:Abnormal, ABDOMEN:Abnormal laboratory and microbiology Laboratory Tests 07/16/25 13:46 07/16/25 12:00 Test 07/16/25 12:00 Range/Units Serum Glucose 100 74-106 mg/dL Microbiology Date/Time Source Procedure Growth Status 07/15/25 01:24 Nose MRSA Screen - Final Methicillin Resistant S.aureus Complete Problem List/Assessment/Plan Problem List/Assessment/Plan 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
[2025-07-18 13:59] VITALS: RESP 16
[2025-07-18 16:20] VITALS: BP 89/48; PULSE 86; TEMP 35.9
--- NOTE | 2025-07-20 07:50 | ECG ---
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
--- NOTE | 2025-07-21 00:47 | DVHDS2 ---
Discharge Summary Date of Admission Jul 14, 2025 at 21:00 Date of Discharge: Jul 18, 2025 Labs/Diagnostic Data: Laboratory Results Test 07/16/25 13:46 07/16/25 12:00 07/15/25 05:17 07/14/25 18:49 White Blood Count 7.1 10^3/uL (4.4-10.8) Red Blood Count 4.43 10^6/uL (4.5-5.90) Hemoglobin 14.7 g/dL (13.5-17.5) Hematocrit 44.1 % (41.0-53.0) Mean Corpuscular Volume 99.7 fL (80.0-100.0) Mean Corpuscular Hemoglobin 33.3 pg (28.0-32.0) Mean Corpuscular Hemoglobin Concent 33.4 g/dL (32.0-36.0) Red Cell Distribution Width 14.1 % (11.8-14.3) Platelet Count 161 10^3/uL (140-450) Mean Platelet Volume 8.4 fL (6.9-10.8) Neutrophils (%) (Auto) 58.7 % (37.0-80.0) Lymphocytes (%) (Auto) 31.5 % (10.0-50.0) Monocytes (%) (Auto) 7.8 % (0.0-12.0) Eosinophils (%) (Auto) 1.2 % (0.0-7.0) Basophils (%) (Auto) 0.8 % (0.0-2.0) Neutrophils # (Auto) 4.2 10 ^3/uL (1.6-8.6) Lymphocytes # (Auto) 2.2 10 ^3/uL (0.4-5.4) Monocytes # (Auto) 0.6 10 ^3/uL (0-1.3) Eosinophils # (Auto) 0.1 10 ^3/uL (0-0.8) Basophils # (Auto) 0.1 10 ^3/uL (0-0.2) Nucleated Red Blood Cells 0.2 % Sodium Level 145 mmol/L (136-145) Potassium Level 4.2 mmol/L (3.5-5.1) Chloride Level 109 mmol/L (98-107) Carbon Dioxide Level 29 mmol/L (20-31) Anion Gap 7 (5-15) Blood Urea Nitrogen 33 mg/dL (9-23) Creatinine 1.37 mg/dL (0.700-1.30) Glomerular Filtration Rate Calc 54 mL/min (>90) BUN/Creatinine Ratio 24.1 (10.0-20.0) Serum Glucose 100 mg/dL (74-106) Calcium Level 9.6 mg/dL (8.7-10.4) Troponin I High Sensitivity 145 ng/L (</=54) Total Bilirubin 0.9 mg/dL (0.2-1.0) Aspartate Amino Transferase (AST) 44 U/L (13-40) Alanine Aminotransferase (ALT) 40 U/L (7-40) Alkaline Phosphatase 84 U/L (46-116) Total Protein 6.7 g/dL (5.7-8.2) Albumin 4.1 g/dL (3.2-4.8) Prothrombin Time 12.6 sec (9.3-11.8) Prothrombin Time INR 1.21 (0.9-1.15) Activated Partial Thromboplast Time 28.4 SEC (24.5-34.5) B-Type Natriuretic Peptide 1794.20 pg/mL (0-100) Other Laboratory Tests 07/16/25 13:46 07/16/25 12:00 Brief Hx & Hospital Course: 75 year old male presents to the ED via EMS with a chief complaint of chest pain. Patient states he had the flu about 1 week ago, since then has been experiencing intermittent chest pain and shortness of breath, fatigue. Patient currently lives in an assisted living facility, shared with staff his symptoms, called 911. Upon EMS arrival, EKG was abnormal, possible STEMI. Upon ED arrival, EKG was repeated, sent to [facility] Dr. Talbot, recommended observation of patient. Denies dizziness, headache, nausea, vomiting, fever, chills, numbness/tingling, weakness. No other symptoms or modifying factors present at this time. afib hypoxia LBBB ckd htn HLD suspected NSTEMI chest pain admitted to tele consult to cardiology pain control evaluation per cardiology pt refused all tx, discharged back to [facility] Condition at Discharge: Fair Final Diagnosis/Problems List see above Discharge Disposition: Assisted Living Facility Discharge Instruct/Medications Diet: Cardiac 2g Na,low cholest Activity: No Restrictions, As Tolerated Scheduled Divalproex Sodium (Depakote), 1 TAB PO BID, (Reported) Famotidine (Pepcid Tablet), 1 TAB PO DAILY, (Reported) Quetiapine Fumerate (Seroquel), 1 TAB PO TID, (Reported) Tamsulosin Hcl (Flomax), CAP PO DAILY, (Reported) Discharge Statement: "Patient was advised to return to the ER or call 911 if any headaches, dizziness, shortness of breath, chest pain, abdominal pain, bleeding, fevers, or worsening of medical condition. Patient was counseled about treatment plan, medications, possible side effects, patientverbalized understanding. All questions were answered to the best of my ability. This discharge took greater then 30 minutes in planning, reviewing documentation, counseling the patient, and discussing with other team members." ASSESSMENT ASSESSMENT Assessment SERA LANGSTON DO Jul 21, 2025 00:47
== END 2025-07-18 21:37 | disposition home or self-care (01) | DRG 281 ==
LOC: EDBD 18:24 → ER 18:24 → OVERFLOW 21:00 → TELE-EAST 22:47
PROVIDERS: ADMIT Internal Medicine; ATTEND Internal Medicine
DX: I21.4 Non-ST elevation (NSTEMI) myocardial infarction (principal); I13.0 Hypertensive heart and chronic kidney disease with heart failure and stage 1 through stage 4 chronic kidney disease, or unspecified chronic kidney disease; I50.84 End stage heart failure; N18.9 Chronic kidney disease, unspecified; J44.9 Chronic obstructive pulmonary disease, unspecified; I48.91 Unspecified atrial fibrillation; F99 Mental disorder, not otherwise specified; E78.5 Hyperlipidemia, unspecified; I44.7 Left bundle-branch block, unspecified; R09.02 Hypoxemia; Z83.3 Family history of diabetes mellitus; Z82.49 Family history of ischemic heart disease and other diseases of the circulatory system
CPT/HCPCS: 36415; 71045; 80048; 80053; 83880; 84484; 85025; 85610; 85730; 87081; 93005; 93306; 94640; 99291; G0378

== ENCOUNTER 2025-07-27 09:21 | Inpatient (IN) | payer MEDICARE, MEDICAID ==
[~2025-07-27] VITALS: Ht 188 cm; Wt 89.3 kg
[~2025-07-27 09:21] MED LIST: DIVA-139 PO; FAMO20TA10 PO; QUET50TA PO; TAMS-35 PO
--- NOTE | 2025-07-27 09:37 | ECG ---
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1950 Requested By: JESSICA WALKER Order Number: [id number] Reading MD: Lamine Talbot Measurements Intervals [place] Rate: 106 P: 0 DC: 0 QRS: -72 QRSD: 155 T: 105 QT: 385 QTc: 512 Interpretive Statements Atrial fibrillation Ventricular premature complex IVCD, consider atypical RBBB LVH with IVCD and secondary repol abnrm Inferior infarct, acute (RCA) Probable anterolateral infarct, acute Prolonged QT interval Probable RV involvement, suggest recording right precordial leads Electronically Signed On 07-29-2025 19:28:52 PST by Lamine Talbot Please click the below link to view image of tracing.
[2025-07-27 09:50] VITALS: PULSE 101; RESP 20; O2SAT 93
--- NOTE | 2025-07-27 10:04 | DVH ---
CHEST RADIOGRAPH Indication: CP Technique: Single frontal view of the chest was obtained COMPARISON: XY CHEST PORTABLE on DOS: 07/14/25, XR CHEST 1 VIEW on DOS: 04/01/23 FINDINGS: Lines and Tubes: None Lungs: Increased interstitial prominence. This may represent pulmonary vascular congestion and/or viral pneumonia. Pleura: No effusion.No pneumothorax. Cardiomediastinal contours: Cardiomegaly. Bones: Unremarkable IMPRESSION: Cardiomegaly. Increased interstitial prominence. This may represent pulmonary vascular congestion and/or viral pneumonia.
[2025-07-27 10:21] LABS: Hematocrit 43.7 % (41.0-53.0); Hemoglobin 14.3 g/dL (13.5-17.5); Mean Corpuscular Hemoglobin 33.0 pg (28.0-32.0); Mean Corpuscular Volume 100.4 fL (80.0-100.0); Nucleated Red Blood Cells % 0.0 %
--- NOTE | 2025-07-27 10:21 | ECG ---
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
[2025-07-27 10:36] LABS: Alanine Aminotransferase 21 U/L (7-40); Albumin 3.5 g/dL (3.2-4.8); Alkaline Phosphatase 72 U/L (46-116); BUN/Creatinine Ratio 14.3 (10.0-20.0); Bilirubin, Total 1.1 mg/dL (0.2-1.0); Blood Urea Nitrogen 17 mg/dL (9-23); INR 1.3 (0.9-1.15); Partial Thromboplastin Time 29.9 SEC (24.5-34.5); Potassium 4.5 mmol/L (3.5-5.1); Prothrombin Time 13.4 sec (9.3-11.8); Sodium 140 mmol/L (136-145); Total Protein 6.0 g/dL (5.7-8.2)
[2025-07-27 10:38] LABS: Anion Gap 10 (5-15)
[2025-07-27 10:44] LABS: Calcium 8.1 mg/dL (8.7-10.4); Carbon Dioxide 18 mmol/L (20-31); Chloride 112 mmol/L (98-107); Glucose 108 mg/dL (74-106)
--- NOTE | 2025-07-27 10:48 | ED.PDOC ---
SOB-HPI HPI Comments 75 y/o M, BIBA, with PMHx of HTN, LA, and chronic hepatitis presents to the ED for CC of shortness of breath. EMS reports, patient is coming from home where he c/o shortness of breath with associated symptoms of faintness x1week. Per EMS, EKG obtained in the field showed ST-Elevation in leads V3-V% with AFib/RVR. In the field, patient was given 325mg of Aspirin with no significant changes in symptoms. Patient denies chest pain, palpitations, nausea, vomiting, headache, or flu-like symptoms. Chief Complaint: Shortness of Breath Time Seen by MD: 10:05 Reviewed notes: Nurses Notes, Whittling Room Operator Notes, Medications, Allergies Information Source: Emergency Med Personnel Mode of Arrival: EMS Severity: Moderate Timing: Weeks Duration: Since onset PE Risk Factors: None History of: None Prehospital treatment: None Modifying Factors: Nothing Associated Signs and Symptoms: None Past Medical History PAST MEDICAL HISTORY: HTN, LA Past Medical History (Other): chronic hepatitis Surgical History: Denies all surgeries Family History Family History: Reviewed,noncontributory to illness, No family hx of Cancer, No family hx of DM, No family hx of Heart armida, No family hx of HTN, No family hx ofKidney armida, No family hx of Liver armida, No family hx of Lung armida, No family hx of Stroke Social History Smoker: Non-Smoker Alcohol: Denies ETOH Use Drugs: Denies Drug Use Lives In: Assisted Care Constitutional: denies: chills, diaphoresis, fatigue, fever, malaise, sweats, weakness, others EENTM: denies: blurred vision, double vision, ear bleeding, ear discharge, ear drainage, ear pain, ear ringing, eye pain, eye redness, hearing loss, mouth pain, mouth swelling, nasal discharge, nose bleeding, nose congestion, nose pain, photophobia, tearing, throat pain, throat swelling, voice changes, others Respiratory: reports: shortness of breath; denies: cough, hemoptysis, orthopnea, SOB at rest, SOB with excertion, stridor, wheezing, others Cardiovascular: denies: chest pain, dizzy spells, diaphoresis, Dyspnea on exertion, edema, irregular heart beat, left arm pain, lightheadedness, palpitations, PND, syncope, others Gastrointestinal: denies: abdomen distended, abdominal pain, blood streaked bowels, constipated, diarrhea, dysphagia, difficulty swallowing, hematemesis, melena, nausea, poor appetite, poor fluid intake, rectal bleeding, rectal pain, vomiting, others Genitourinary: denies: burning, dysuria, flank pain, frequency, hematuria, incontinence, penile discharge, penile sore, pain, testicle pain, testicle sw elling, urgency, others Neurological: reports: others (faintness); denies: dizziness, fainting, headache, left sided numbness, left sided weakness, numbness, paresthesia, pre- existing deficit, right sided numbness, right sided weakness, seizure, speech problems, tingling, tremors, weakness Musculoskeletal: denies: back pain, gout, joint pain, joint swelling, muscle pain, muscle stiffness, neck pain, others Integumetry: denies: bruises, change in color, change in hair/nails, dryness, laceration, lesions, lumps, rash, wounds, others Allergic/Immunocompromised: denies: Difficulty Healing, Frequent Infections, Hives, Itching, others Hematologic/Lymphatic: denies: anemia, blood clots, easy bleeding, easy bruising, swollen glands, others Endocrine: denies: excessive hunger, excessive sweating, excessive thirst, excessive urination, flushing, intolerance to cold, intolerance to heat, unexplained weight gain, unexplained weight loss, others Psychiatric: denies: anxiety, bipolar disorder, depression, hopeless, panic disorder, schizophrenia, sleepless, suicidal, others All Other Systems: Reviewed and Negative Physical Exam General Appearance: Moderate Distress, Normal HEENT: Normal ENT Inspection, Pharynx Normal, TMs Normal Neck: Full Range of Motion, Non-Tender, Normal, Normal Inspection Respiratory: Chest Non-Tender, No Accessory Muscle Use, Other (Bilateral scattered rhonchi, mild to moderate respiratory distress) Cardiovascular: No Edema, No JVD, No Murmur, No Gallop, Normal Peripheral Pulses, Regular Rate/Rhythm Breast Exam: Deferred Gastrointestinal: No Organomegaly, Non Tender, No Pulsatile Mass, Normal Bowel Sounds, Soft Genitalia: Deferred Pelvic: Deferred Rectal: Deferred Extremities: No calf tenderness, Normal capillary refill, Normal inspection, Normal range of motion, Non-tender, No pedal edema Musculoskeletal : Apperance: Normal Neurologic: Alert, ground wood supervisor II-XII nml as Tested, No Motor Deficits, Normal Affect, Normal Mood, No Sensory Deficits Cerebellar Function: Normal Reflexes: Normal Skin: Dry, Normal Color, Warm Lymphatic: No Adenopathy EKG EKG : Pulse Rate (adult): 92 Cardiac Rhythm: Afib Comments Anterior and inferior ST segment elevations, lateral ST depressions with a T- wave inversions. Concern for STEMI Was a procedure done? Was a procedure done?: No Differential Dx Differential Diagnosis: Bronchitis, Cardiogenic Shock, CHF, COPD, Myocardial infarction, Pneumonia, Pneumothorax, PSVT, Sinusitis, Pharyngitis, URI X-Ray, Labs, Meds, VS Vital Signs Date Time Temp Pulse Resp B/P (MAP) Pulse Ox O2 Delivery O2 Flow Rate FiO2 07/27/25 12:25 105 07/27/25 10:19 92 07/27/25 09:50 101 20 93 Room Air* 0 21 07/27/25 09:50 98.5 101 20 122/89 (100) 93 98.5 07/27/25 09:33 98.0 100 20 118/79 95 98.0 07/27/25 09:23 106 Lab Test 07/27/25 12:34 07/27/25 10:36 07/27/25 09:30 Range/Units Troponin I High Sensitivity Pending 103 *H 91 *H </=54 ng/L White Blood Count 7.1 4.4-10.8 10^3/uL Red Blood Count 4.35 L 4.5-5.90 10^6/uL Hemoglobin 14.3 13.5-17.5 g/dL Hematocrit 43.7 41.0-53.0 % Mean Corpuscular Volume 100.4 H 80.0-100.0 fL Mean Corpuscular Hemoglobin 33.0 H 28.0-32.0 pg Mean Corpuscular Hemoglobin Concent 32.8 32.0-36.0 g/dL Red Cell Distribution Width 14.2 11.8-14.3 % Platelet Count 147 140-450 10^3/uL Mean Platelet Volume 8.9 6.9-10.8 fL Neutrophils (%) (Auto) 66.1 37.0-80.0 % Lymphocytes (%) (Auto) 22.4 10.0-50.0 % Monocytes (%) (Auto) 9.1 0.0-12.0 % Eosinophils (%) (Auto) 1.5 0.0-7.0 % Basophils (%) (Auto) 0.9 0.0-2.0 % Neutrophils # (Auto) 4.7 1.6-8.6 10 ^3/uL Lymphocytes # (Auto) 1.6 0.4-5.4 10 ^3/uL Monocytes # (Auto) 0.6 0-1.3 10 ^3/uL Eosinophils # (Auto) 0.1 0-0.8 10 ^3/uL Basophils # (Auto) 0.1 0-0.2 10 ^3/uL Nucleated Red Blood Cells 0.0 % Prothrombin Time 13.4 H 9.3-11.8 sec Prothrombin Time INR 1.30 H 0.9-1.15 Activated Partial Thromboplast Time 29.9 24.5-34.5 SEC Sodium Level 140 136-145 mmol/L Potassium Level 4.5 3.5-5.1 mmol/L Chloride Level 112 H 98-107 mmol/L Carbon Dioxide Level 18 L 20-31 mmol/L Anion Gap 10 5-15 Blood Urea Nitrogen 17 9-23 mg/dL Creatinine 1.19 0.700-1.30 mg/dL Glomerular Filtration Rate Calc 65 >90 mL/min BUN/Creatinine Ratio 14.3 10.0-20.0 Serum Glucose 108 H 74-106 mg/dL Calcium Level 8.1 L 8.7-10.4 mg/dL Total Bilirubin 1.1 H 0.2-1.0 mg/dL Aspartate Amino Transferase (AST) 33 13-40 U/L Alanine Aminotransferase (ALT) 21 7-40 U/L Alkaline Phosphatase 72 46-116 U/L B-Type Natriuretic Peptide 1868.59 0-100 pg/mL Total Protein 6.0 5.7-8.2 g/dL Albumin 3.5 3.2-4.8 g/dL [address] [address] Ph: [phone] DIAGNOSTIC IMAGING Diagnostic Imaging Report : [id number] Signed PATIENT: RANDEE MARSH ACCT: [id number] UNIT: [id number] : 1950 LOC: ER ROOM / BED: / AGE / SEX: 75 / M ADM STATUS: REG ER SERVICE ORDERING PHYSICIAN: JESSICA WALKER MD PROCEDURE(s): CXRP - CHEST PORTABLE REASON: CP ORDER NUMBER(s): [id number], ACCESSION NUMBER(s): [id number] CHEST RADIOGRAPH Indication: CP Technique: Single frontal view of the chest was obtained COMPARISON: XY CHEST PORTABLE on DOS: 07/14/25, XR CHEST 1 VIEW on DOS: 04/01/23 FINDINGS: Lines and Tubes: None Lungs: Increased interstitial prominence. This may represent pulmonary vascular congestion and/or viral pneumonia. Pleura: No effusion.No pneumothorax. Cardiomediastinal contours: Cardiomegaly. Bones: Unremarkable IMPRESSION: Cardiomegaly. Increased interstitial prominence. This may represent pulmonary vascular congestion and/or viral pneumonia. ATED BY: TONY BOB MD DICTATED DATE/TIME: 07/27/25 1002 SIGNED BY: TONY BOB MD SIGNED DATE/TIME: 07/27/25 1002 CC: X-Ray, Labs, Meds, VS Comment 75-year-old male here today with a primary concern of shortness a breath. Physical exam with evidence of scattered rhonchi. Initial EKG with evidence of anterior and inferior ST segment elevation with a lateral ST-depression/T-wave inversions concerning for STEMI. Attempted to call Dr. Calixto who was on-call for Cardiology however there was no answer. I called a code STEMI and the cardiology US[facility] presented to bedside and noted the EKG changes on the repeat EKG but stated that presentation was consistent with a left bundle-branch block but the patient would likely require a catheterization due to the EKG changes. Troponin mildly elevated. Plan made to admit the patient for further management of his volume overload and for consideration of cardiac catheterization. Images Reviewed?: Images reviewed and evaluated by me Time of 1ST Reevaluation: 10:35 Reevaluation 1ST: Unchanged Time of 2ND Reevaluation: 13:13 Reevaluation 2ND: Improved Patient Education/Counseling: Diagnosis, Treatment Family Education/Counseling: No Family Present SEPSIS Sepsis Screen Date sepsis recognized/suspect: Jul 27, 2025 Time Sepsis recognized/suspect: 920 Recent Procedure: No On Antibiotic Therapy: No Respiratory Rate >20: No Heart Rate >90: No Temp<36 C (96.8 F) or >38.3 C: No SBP <90 or MAP <65 mmHG: No New Acute Mental Status Change: No Is the patient on CPAP, BIPAP,: No Physician Orders Chest Portable (07/27/25 09:31) Urinalysis (07/27/25 09:31) Troponin-I Hs (07/27/25 12:31) Furosemide Injection (Lasix Injection) (07/27/25 13:15) Vital Signs Date Time Temp Pulse Resp B/P (MAP) Pulse Ox O2 Delivery O2 Flow Rate FiO2 07/27/25 12: 105 07/27/25 10:19 92 07/27/25 09:50 101 20 93 Room Air* 0 21 07/27/25 09:50 98.5 101 20 122/89 (100) 93 98.5 07/27/25 09:33 98.0 100 20 118/79 95 98.0 07/27/25 09:23 106 Laboratory Tests Test 07/27/25 09:30 White Blood Count 7.1 10^3/uL (4.4-10.8) Departure 1 Departure Time of Disposition: 13:13 Impression: Primary Impression: Acute coronary syndrome with high troponin Additional Impressions: CHF exacerbation Elevated troponin Disposition: ADMITTED INPATIENT Admit to: Tele Condition: Serious Critical Care Note Critical Care Time?: Yes (45 min-critical care time only) Stability Stability form required: No Heart Score Heart Score: Heart Score Response (Comments) Value History Slightly Suspicious [address]-Deviation 2 Age >65 2 Risk Factors >3 or Hx ASHD 2 Troponin 1-2 x's Normal limit 1 Total 7 I personally scribed for JESSICA WALKER MD ([email or web address]) on 07/27/25 at 10:48. Electronically submitted by Gregoria Moreira ([email or web address]). I personally scribed for JESSICA WALKER MD ([email or web address]) on 07/27/25 at 10:57. Electronically submitted by Gregoria Moreira ([email or web address]). JESSICA WALKER MD Jul 27, 2025 10:48
--- NOTE | 2025-07-27 12:29 | ECG ---
[facility] Test Date: 2025-07-27 Test Time: 12:25:48 Pat Name: RANDEE MARSH Department: Room: 0280 Gender: M Acid Cleaner: AMANDA : 1950 Requested By: JESSICA WALKER Order Number: [id number] Reading MD: Lamine Talbot Measurements Intervals [place] Rate: 105 P: 0 VT: 0 QRS: -73 QRSD: 153 T: 104 QT: 392 QTc: 519 Interpretive Statements Atrial fibrillation IVCD, consider atypical RBBB LVH with secondary repolarization abnormality Inferior infarct, acute Probable anterolateral infarct, acute Electronically Signed On 07-29-2025 20:03:18 PST by Lamine Talbot Please click the below link to view image of tracing.
[2025-07-27] MEDS: FUROSEMIDE 20 MG/2 ML VIAL IV ONE (15:09)
--- NOTE | 2025-07-27 15:33 | DVHHP2 ---
History of Present Illness HPI 75 y/o M, BIBA, with PMHx of HTN, MA, and chronic hepatitis presents to the ED for CC of shortness of breath. EMS reports, patient is coming from home where he c/o shortness of breath with associated symptoms of faintness x1week. Per EMS, EKG obtained in the field showed ST-Elevation in leads V3-V% with AFib/RVR. In the field, patient was given 325mg of Aspirin with no significant changes in symptoms. Patient denies chest pain, palpitations, nausea, vomiting, headache, or flu-like symptoms. Home Meds Active Scripts Apixaban Base (ELIQUIS) 5 Mg Tab, 5 MG PO BID for 30 Days, #60 TAB 6 Refills Prov:SERA LANGSTON DO 07/29/25 Empagliflozin (Jardiance) 10 Mg Tab, 10 MG PO DAILY for 30 Days, #30 TAB 6 Refills Prov:SERA LANGSTON DO 07/29/25 Metoprolol Tartrate (Lopressor) 25 Mg Tb, 12.5 MG PO BID for 30 Days, #30 TAB 6 Refills Prov:SERA LANGSTON DO 07/29/25 Spironolactone (Aldactone) 25 Mg Tab, 25 MG PO DAILY for 30 Days, #30 TAB 3 Refills Prov:SERA LANGSTON DO 07/29/25 Sacubitril-Valsartan (Entresto 24-26 mg) 1 Tab Tab, 1 TAB PO BID for 30 Days, #60 TAB 3 Refills Prov:SERA LANGSTON DO 07/29/25 Reported Medications Meloxicam (Meloxicam) 7.5 Mg Tab, 1 TAB PO DAILY, #30 TAB 2 Refills 07/28/25 Quetiapine Fumerate (Seroquel) 50 Mg Tab, 1 TAB PO TID, #30 TAB 2 Refills 07/15/25 Famotidine (PEPCID TABLET) 20 Mg Tb, 1 TAB PO DAILY, #60 TAB 5 Refills 07/15/25 Tamsulosin Hcl (Flomax) 0.4 Mg Cap, CAP PO DAILY, #30 CAP 11 Refills 07/15/25 Divalproex Sodium (Depakote) 250 Mg Tab, 1 TAB PO BID, #60 TAB 2 Refills 07/15/25 H&P Exam Vital Signs Vital Signs Date Time Temp Pulse Resp B/P (MAP) Pulse Ox O2 Delivery O2 Flow Rate FiO2 07/27/25 15:22 98.4 83 16 101/65 (77) 99 98.4 07/27/25 09:50 Room Air* 0 21 SEPSIS Sepsis Screen Date sepsis recognized/suspect: Jul 27, 2025 Time Sepsis recognized/suspect: 0950 Recent Procedure: No On Antibiotic Therapy: No Respiratory Rate >20: No Heart Rate >90: Yes Temp<36 C (96.8 F) or >38.3 C: No SBP <90 or MAP <65 mmHG: No New Acute Mental Status Change: No Is the patient on CPAP, BIPAP,: No Physician Orders Chest Portable (07/27/25 09:31) Urinalysis (07/27/25 09:31) Vital Signs Date Time Temp Pulse Resp B/P (MAP) Pulse Ox O2 Delivery O2 Flow Rate FiO2 07/27/25 15:22 98.4 83 16 101/65 (77) 99 98.4 07/27/25 15:09 101/65 07/27/25 13:14 92 07/27/25 12:25 105 07/27/25 10:19 92 07/27/25 09:50 101 20 93 Room Air* 0 21 07/27/25 09:50 98.5 101 20 122/89 (100) 93 98.5 07/27/25 09:33 98.0 100 20 118/79 95 98.0 07/27/25 09:23 106 Laboratory Tests Test 07/27/25 09:30 White Blood Count 7.1 10^3/uL (4.4-10.8) Medications Medications Dose Ordered Sig/Efrain Route Start Time Stop Time Status Last Admin Dose Admin Furosemide 20 mg ONCE ONCE IV 07/27/25 13:15 07/27/25 13:16 DC 07/27/25 15:09 20 MG Labs/Xrays Labs Test 07/27/25 12:34 07/27/25 09:30 Range/Units Troponin I High Sensitivity 93 *H </=54 ng/L White Blood Count 7.1 4.4-10.8 10^3/uL Red Blood Count 4.35 L 4.5-5.90 10^6/uL Hemoglobin 14.3 13.5-17.5 g/dL Hematocrit 43.7 41.0-53.0 % Mean Corpuscular Volume 100.4 H 80.0-100.0 fL Mean Corpuscular Hemoglobin 33.0 H 28.0-32.0 pg Mean Corpuscular Hemoglobin Concent 32.8 32.0-36.0 g/dL Red Cell Distribution Width 14.2 11.8-14.3 % Platelet Count 147 140-450 10^3/uL Mean Platelet Volume 8.9 6.9-10.8 fL Neutrophils (%) (Auto) 66.1 37.0-80.0 % Lymphocytes (%) (Auto) 22.4 10.0-50.0 % Monocytes (%) (Auto) 9.1 0.0-12.0 % Eosinophils (%) (Auto) 1.5 0.0-7.0 % Basophils (%) (Auto) 0.9 0.0-2.0 % Neutrophils # (Auto) 4.7 1.6-8.6 10 ^3/uL Lymphocytes # (Auto) 1.6 0.4-5.4 10 ^3/uL Monocytes # (Auto) 0.6 0-1.3 10 ^3/uL Eosinophils # (Auto) 0.1 0-0.8 10 ^3/uL Basophils # (Auto) 0.1 0-0.2 10 ^3/uL Nucleated Red Blood Cells 0.0 % Prothrombin Time 13.4 H 9.3-11.8 sec Prothrombin Time INR 1.30 H 0.9-1.15 Activated Partial Thromboplast Time 29.9 24.5-34.5 SEC Sodium Level 140 136-145 mmol/L Potassium Level 4.5 3.5-5.1 mmol/L Chloride Level 112 H 98-107 mmol/L Carbon Dioxide Level 18 L 20-31 mmol/L Anion Gap 10 5-15 Blood Urea Nitrogen 17 9-23 mg/dL Creatinine 1.19 0.700-1.30 mg/dL Glomerular Filtration Rate Calc 65 >90 mL/min BUN/Creatinine Ratio 14.3 10.0-20.0 Serum Glucose 108 H 74-106 mg/dL Calcium Level 8.1 L 8.7-10.4 mg/dL Total Bilirubin 1.1 H 0.2-1.0 mg/dL Aspartate Amino Transferase (AST) 33 13-40 U/L Alanine Aminotransferase (ALT) 21 7-40 U/L Alkaline Phosphatase 72 46-116 U/L B-Type Natriuretic Peptide 1868.59 0-100 pg/mL Total Protein 6.0 5.7-8.2 g/dL Albumin 3.5 3.2-4.8 g/dL Assessment/Plan Primary Diagnosis 75 y/o M, BIBA, with PMHx of HTN, MA, and chronic hepatitis presents to the ED for CC of shortness of breath. EMS reports, patient is coming from home where he c/o shortness of breath with associated symptoms of faintness x1week. Per EMS, EKG obtained in the field showed ST-Elevation in leads V3-V% with AFib/RVR. In the field, patient was given 325mg of Aspirin with no significant changes in symptoms. Patient denies chest pain, palpitations, nausea, vomiting, headache, or flu-like symptoms. short of breath acute hpoxic resp failure HTN CAD with MA chronic hepatitis Acute on chronic decompensated HFrEF, NYHA Class IV. Atrial fibrillation with rapid ventricular rate, now rate controlled (off DOACs). Acute hypoxic respiratory failure. NSTEMI, likely type 2 secondary to above. 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 Biventricular heart failure. Left bundle branch block. Low-flow, low-gradient severe aortic stenosis. Severe aortic/mitral regurgitation. 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 LAWSON on CKD. +Cannabis. Plan discussed with: Patient SERA LANGSTON Kalpana DO Jul 27, 2025 15:33
[2025-07-27] MEDS ORDERED: ONDANSETRON HCL 4 MG/2 ML VIAL IV PRN (20:15)
[2025-07-27] MEDS ORDERED: NITROGLYCERIN 0.4 MG SL TAB SL PRN (20:15)
[2025-07-27] MEDS ORDERED: MORPHINE SULFATE INJ 2 MG/ml SYRG IV PRN (20:15)
[2025-07-27] MEDS ORDERED: HYDROcodone-ACET 5/325MG TAB PO PRN (20:15)
[2025-07-27 20:19] VITALS: PULSE 115; RESP 19; O2SAT 97
[2025-07-27] MEDS: ONDANSETRON HCL 4 MG/2 ML VIAL ONE (21:08)
[2025-07-27] MEDS: ACETAMINOPHEN 325 MG TAB PO PRN (21:09)
[2025-07-27] MEDS: MORPHINE SULFATE INJ 2 MG/ml SYRG IV PRN (21:09)
[2025-07-27 23:15] VITALS: BP 127/69; PULSE 125; RESP 18; TEMP 96.9; O2SAT 93
[2025-07-28 01:00] VITALS: BP 119/74; PULSE 104; RESP 18; TEMP 97.9; O2SAT 100
[2025-07-28] MEDS: MORPHINE SULFATE 4 MG/ML SYR/VIAL IV PRN (05:10)
[2025-07-28 06:08] LABS: Hematocrit 41.3 % (41.0-53.0); Hemoglobin 13.9 g/dL (13.5-17.5); Mean Corpuscular Hemoglobin 33.4 pg (28.0-32.0); Mean Corpuscular Volume 99.2 fL (80.0-100.0); Nucleated Red Blood Cells % 0.3 %
[2025-07-28 06:22] LABS: Alanine Aminotransferase 20 U/L (7-40); Albumin 3.6 g/dL (3.2-4.8); Alkaline Phosphatase 84 U/L (46-116); Anion Gap 7 (5-15); BUN/Creatinine Ratio 19.6 (10.0-20.0); Carbon Dioxide 22 mmol/L (20-31); Glucose 86 mg/dL (74-106); Potassium 4.9 mmol/L (3.5-5.1); Sodium 140 mmol/L (136-145); Total Protein 6.1 g/dL (5.7-8.2)
[2025-07-28 06:23] LABS: Bilirubin, Total 0.6 mg/dL (0.2-1.0)
[2025-07-28 06:27] LABS: Blood Urea Nitrogen 30 mg/dL (9-23); Calcium 8.5 mg/dL (8.7-10.4); Chloride 111 mmol/L (98-107)
[2025-07-28 08:11] VITALS: RESP 18
[2025-07-28] MEDS: FUROSEMIDE 40 MG/4 ML VIAL IV ONE (08:15)
[2025-07-28 08:50] VITALS: BP 92/58; PULSE 107; RESP 20; TEMP 98.8; O2SAT 86
[2025-07-28] MEDS: METOPROLOL TARTRATE 25 MG TAB PO SCH (10:00)
[2025-07-28] MEDS ORDERED: ENOXAPARIN SOD 40 MG/0.4 ML SYRINGE SC SCH (10:00)
[2025-07-28] MEDS: ENOXAPARIN SOD 100 MG/1 ML SYRINGE SC SCH (10:00)
[2025-07-28 12:34] LABS: Magnesium 2.3 mg/dL (1.6-2.6); Triglycerides 98.0 mg/dL (< 150)
[2025-07-28 12:35] LABS: HDL Cholesterol 41.0 mg/dL (40-59)
[2025-07-28 12:36] LABS: Cholesterol 140.0 mg/dL (< 200)
[2025-07-28 13:00] VITALS: BP 120/80; PULSE 83; RESP 18; TEMP 98.1; O2SAT 93
[2025-07-28] MEDS ORDERED: MELO7.5T7 PO (13:29)
--- NOTE | 2025-07-28 15:52 | DVHINCON2 ---
Date Seen: Jul 28, 2025 Referring Physician MD Dolly Reason for Consultation Elevated troponin levels History of Present Illness This is a 75-year-old man who presented to the emergency room via EMS with a chief complaint of shortness of breath and increased anxiety on 07/27/2025. Upon arrival to the emergency room the patient underwent a 12 lead electrocardiogram revealing an atrial fibrillation rhythm with an associated left bundle branch block with ED physician activating a code STEMI which was canceled by on-call churn driller helper Dr. Calixto. This provider was at bedside at that time with the patient denying any chest pain and complaining of uneasiness, SOB, and extreme anxiety. Troponin levels peaked at 103 ng/L. Followed 12 lead electrocardiograms x3 did not reveal any progressive ST-T segment changes. At this time, the patient is providing almost no information and it is stating he is becoming very uneasy and anxious with my evaluation. Significant medical history includes congestive heart failure with HFrEF, unspecified atrial fibrillation (off DOAC therapy), hypertension, and chronic kidney disease. Past Medical History Unable to retrieve full past medical history. Past Surgical History Unable to retrieve past surgical history. Family History: Patient reports no known family medical history. Family History Unable to retrieve family history. Social History UDS positive for cannabinoids. Allergies: Coded Allergies: NO KNOWN ALLERGIES (Unverified , 07/14/25) Home Meds Reported Medications Meloxicam (Meloxicam) 7.5 Mg Tab, 1 TAB PO DAILY, #30 TAB 2 Refills 07/28/25 Quetiapine Fumerate (Seroquel) 50 Mg Tab, 1 TAB PO TID, #30 TAB 2 Refills 07/15/25 Famotidine (PEPCID TABLET) 20 Mg Tb, 1 TAB PO DAILY, #60 TAB 5 Refills 07/15/25 Tamsulosin Hcl (Flomax) 0.4 Mg Cap, CAP PO DAILY, #30 CAP 11 Refills 07/15/25 Divalproex Sodium (Depakote) 250 Mg Tab, 1 TAB PO BID, #60 TAB 2 Refills 07/15/25 Home Meds Home medications reviewed. Current Medications Current Medications Medications (Trade) Dose Ordered Sig/Efrain Route PRN Reason Start Time Stop Time Status Last Admin Acetaminophen/ Hydrocodone Bitart ([place] 5/325MG Tab) 1 tab Q4HP PRN PO MODERATE PAIN (4-6 PAIN SCALE) 07/27/25 20:15 Ondansetron HCl (Zofran) 4 mg Q4HP PRN IV NAUSEA / VOMITING 07/27/25 20:15 Hold Enoxaparin Sodium (Lovenox) 40 mg DAILY SC 07/28/25 10:00 07/28/25 08:08 DC Acetaminophen (Tylenol Tablet) 650 mg Q6HP PRN PO PAIN SCALE 1-3 OR TEMP>100.4 07/27/25 20:15 07/27/25 21:09 Morphine Sulfate 2 mg Q4HPRN PRN IV SEVERE PAIN (7-10 PAIN SCALE) 07/27/25 20:15 07/28/25 04:57 DC Nitroglycerin (Ntrostat Sublingual) 0.4 mg Q5MINP PRN SL FOR CHEST PAIN 07/27/25 20:15 Morphine Sulfate 2 mg Q30M PRN IV FOR CHEST PAIN 07/27/25 20:15 07/27/25 21:09 Morphine Sulfate 2 mg Q4HPRN PRN IV SEVERE PAIN (7-10 PAIN SCALE) 07/28/25 05:00 07/28/25 13:06 Enoxaparin Sodium (Lovenox) 90 mg Q12HR SC 07/28/25 10:00 Furosemide (Lasix Injection) 40 mg BIDD IV 07/28/25 18:00 Metoprolol Tartrate (Lopressor Tablet) 12.5 mg BID PO 07/28/25 10:00 Review of Systems Constitutional: No symptom reported Ears, Nose, & Throat: No symptom reported Eyes: No symptom reported Neurological: No symptoms reported Pulmonary/Respiratory: SOB Cardiovascular: No symptom reported Gastrointestinal: No symptom reported Genitourinary: No symptom reported Musculoskeletal: No symptom reported Skin: No symptom reported Psychiatric: Anxiety Endocrine: No symptom reported Hemotologic/Lymphatic: No symptom reported Vital Signs Vital Signs Date Time Temp Pulse Resp B/P (MAP) Pulse Ox O2 Delivery O2 Flow Rate FiO2 07/28/25 13:06 83 20 120/80 07/28/25 13:00 98.1 93 98.1 07/28/25 08:11 Room Air* 0 21 Physical Exam General Appearance: Cooperative. Well developed. Well nourished. In no acute distress Head Exam: Normal inspection Neck Exam: Normal inspection. Non-tender. Normal alignment Pulmonary/Respiratory: Chest non-tender. Crackles to bilateral breath sounds Cardiovascular/Chest: Irregularly irregular rate and rhythm. Systolic murmur. + JVD. Peripheral Pulses: 2+ Radial (R). 2+ Radial (L). 2+ Pedal (R). 2+ Pedal (L) Abdominal Exam: Normal bowel sounds. Soft. Nontender. No hepatospenomegaly. No masses Ankle Exam: Negative ankle edema Lower extremities: Negative lower extremity edema Neuro/Mental Status: A&O x4. Coherent Thoughts/Psych: Normal thought pattern. Extremely anxious, belligerent, uneasy, rambling thoughts Appearance: In no acute distress Skin Exam: Normal inspection. Normal color. Warm. Dry Labs/Diagnostic Data Labs Test 07/28/25 04:43 07/27/25 12:34 07/27/25 09:30 Range/Units White Blood Count 8.1 4.4-10.8 10^3/uL Red Blood Count 4.16 L 4.5-5.90 10^6/uL Hemoglobin 13.9 13.5-17.5 g/dL Hematocrit 41.3 41.0-53.0 % Mean Corpuscular Volume 99.2 80.0-100.0 fL Mean Corpuscular Hemoglobin 33.4 H 28.0-32.0 pg Mean Corpuscular Hemoglobin Concent 33.6 32.0-36.0 g/dL Red Cell Distribution Width 14.0 11.8-14.3 % Platelet Count 156 140-450 10^3/uL Mean Platelet Volume 8.9 6.9-10.8 fL Neutrophils (%) (Auto) 52.7 37.0-80.0 % Lymphocytes (%) (Auto) 35.9 10.0-50.0 % Monocytes (%) (Auto) 8.3 0.0-12.0 % Eosinophils (%) (Auto) 2.3 0.0-7.0 % Basophils (%) (Auto) 0.8 0.0-2.0 % Neutrophils # (Auto) 4.3 1.6-8.6 10 ^3/uL Lymphocytes # (Auto) 2.9 0.4-5.4 10 ^3/uL Monocytes # (Auto) 0.7 0-1.3 10 ^3/uL Eosinophils # (Auto) 0.2 0-0.8 10 ^3/uL Basophils # (Auto) 0.1 0-0.2 10 ^3/uL Nucleated Red Blood Cells 0.3 % Sodium Level 140 136-145 mmol/L Potassium Level 4.9 3.5-5.1 mmol/L Chloride Level 111 H 98-107 mmol/L Carbon Dioxide Level 22 20-31 mmol/L Anion Gap 7 5-15 Blood Urea Nitrogen 30 #H 9-23 mg/dL Creatinine 1.53 H 0.700-1.30 mg/dL Glomerular Filtration Rate Calc 48 >90 mL/min BUN/Creatinine Ratio 19.6 10.0-20.0 Serum Glucose 86 74-106 mg/dL Hemoglobin A1c 5.2 <5.7 % A1C Calcium Level 8.5 L 8.7-10.4 mg/dL Magnesium Level 2.3 1.6-2.6 mg/dL Total Bilirubin 0.6 0.2-1.0 mg/dL Aspartate Amino Transferase (AST) 28 13-40 U/L Alanine Aminotransferase (ALT) 20 7-40 U/L Alkaline Phosphatase 84 46-116 U/L B-Type Natriuretic Peptide 2301.07 0-100 pg/mL Total Protein 6.1 5.7-8.2 g/dL Albumin 3.6 3.2-4.8 g/dL Triglycerides Level 98 < 150 mg/dL Cholesterol Level 140 < 200 mg/dL LDL Cholesterol 83 < 100 mg/dL HDL Cholesterol 41 40-59 mg/dL Thyroid Stimulating Hormone (TSH) 1.50 0.55-4.78 uIU/mL Troponin I High Sensitivity 93 *H </=54 ng/L Prothrombin Time 13.4 H 9.3-11.8 sec Prothrombin Time INR 1.30 H 0.9-1.15 Activated Partial Thromboplast Time 29.9 24.5-34.5 SEC Assessment Acute on chronic decompensated HFrEF, NYHA Class IV Atrial fibrillation with rapid ventricular rate, now rate controlled (off DOACs) Acute hypoxic respiratory failure NSTEMI, likely type 2 secondary to above 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 * Multiple 12 lead electrocardiogram revealed an atrial fibrillation rhythm with an associated left bundle branch block * Serial troponin levels peaked at 145 ng/L. BNP level 2300s Plan/Recommendation (Dr. Calixto) The patient could potentially benefit from a right and left cardiac catheterization and coronary angiogram to further assess aortic valve and rule out coronary ischemia. Not indicated at this time given uncooperative behavior. In the meantime, initiate GDMT for HFrEF and titrate as tolerated. Initiate preload and afterload reduction, strict I&Os, daily weight, and maintain fluid restrictions. Given unknown onset of a-fib and lack of DOAC therapy, avoid antiarrhythmic agents. Continue rate control with beta-blockers, avoid CCBs. Initiate Eliquis therapy BID, [id number] Score 3 points. Monitor ECG changes closely and notify accordingly. Unable to perform a full evaluation given the patient's non-cooperative behavior. Highly suspected for an undiagnosed psych disorder which is hindering the patient's overall care. Consider a Psych consultation. Kindly call if in need of further recommendations. Thank you for allowing us to participate in this patient's care. This medical document was created using an electronic medical record system with voice recognition software and computerized dictation system. Although this document has been carefully reviewed, there might still be some phonetic and typographical errors. Occasional wrong-word or ``sound-alike substitutions may have occurred due to the inherent limitations of voice recognition software. These areas are purely typographical due to imperfections of the software programs and do not reflect any compromise in the patient's medical care. Please read the chart carefully and recognize, using context, where these substitutions have occurred. Plan discussed with: Patient, Other NYHA Physical activity limitations: Class4(Severe)discomfort (w any activit,symptoms at rest) Date of Service: Jul 28, 2025 Billing Provider: CINDY LOTT Cardiology Common Codes: 29801-HYXJGSLS CARE 30-74 MIN CINDY LOTT Jul 28, 2025 15:52
[2025-07-28 16:28] LABS: Urine Protein, UAD 1+ (Negative)
[2025-07-28 16:35] LABS: Cannabinoid Screen, Urine Pos (NEGATIVE); Opiate Scree,Urine Pos (NEGATIVE)
[2025-07-28 16:36] LABS: Amphetamine Screen, Urine Neg (NEGATIVE); Barbiturate Scree,Urine Neg (NEGATIVE); Benzodiazephine Screen, Urine Neg (NEGATIVE); Cocaine Screen, Urine Neg (NEGATIVE); Phencyclidine Screen, Urine Neg (NEGATIVE)
[2025-07-28 16:49] VITALS: BP 130/76; PULSE 67; RESP 16; TEMP 98.7; O2SAT 92
[2025-07-28] MEDS: FUROSEMIDE 40 MG/4 ML VIAL IV SCH (17:30)
--- NOTE | 2025-07-28 17:48 | DVHPN2 ---
Progress Note Date Seen: Jul 28, 2025 Medical Necessity Reason Pt with a Central, PICC or Fol: No Objective vital signs Vital Sign Date Time Temp Pulse Resp B/P (MAP) Pulse Ox O2 Delivery O2 Flow Rate FiO2 07/28/25 17:30 130/76 07/28/25 16:49 98.7 67 16 92 98.7 07/28/25 08:11 Room Air* 0 21 Total Intake and Output 07/27/25 07/27/25 07/28/25 15:00 23:00 07:00 Intake Total 300 ml Balance 300 ml medications Current Medications Medications Dose Ordered Sig/Efrain Route Start Time Stop Time Status Last Admin Dose Admin Acetaminophen/ Hydrocodone Bitart 1 tab Q4HP PRN PO 07/27/25 20:15 Ondansetron HCl 4 mg Q4HP PRN IV 07/27/25 20:15 Hold Acetaminophen 650 mg Q6HP PRN PO 07/27/25 20:15 07/27/25 21:09 650 MG Nitroglycerin 0.4 mg Q5MINP PRN SL 07/27/25 20:15 Morphine Sulfate 2 mg Q30M PRN IV 07/27/25 20:15 07/27/25 21:09 2 MG Morphine Sulfate 2 mg Q4HPRN PRN IV 07/28/25 05:00 07/28/25 13:06 2 MG Enoxaparin Sodium 90 mg Q12HR SC 07/28/25 10:00 Furosemide 40 mg BIDD IV 07/28/25 18:00 07/28/25 17:30 40 MG Metoprolol Tartrate 12.5 mg BID PO 07/28/25 10:00 laboratory and microbiology Laboratory Tests 07/28/25 04:43 Test 07/28/25 04:43 Range/Units Serum Glucose 86 74-106 mg/dL Labs and/or images reviewed: Labs reviewed by me, Image(s) reviewed by me Problem List/Assessment/Plan Problem List/Assessment/Plan 75 y/o M, BIBA, with PMHx of HTN, VT, and chronic hepatitis presents to the ED for CC of shortness of breath. EMS reports, patient is coming from home where he c/o shortness of breath with associated symptoms of faintness x1week. Per EMS, EKG obtained in the field showed ST-Elevation in leads V3-V% with AFib/RVR. In the field, patient was given 325mg of Aspirin with no significant changes in symptoms. Patient denies chest pain, palpitations, nausea, vomiting, headache, or flu-like symptoms. short of breath acute hpoxic resp failure HTN CAD with VT chronic hepatitis Acute on chronic decompensated HFrEF, NYHA Class IV. Atrial fibrillation with rapid ventricular rate, now rate controlled (off DOACs). Acute hypoxic respiratory failure. NSTEMI, likely type 2 secondary to above. 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 Biventricular heart failure. Left bundle branch block. Low-flow, low-gradient severe aortic stenosis. Severe aortic/mitral regurgitation. 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 LAWSON on CKD. +Cannabis. evaluated by cardiology Plan discussed with: Patient My Orders My Orders Orders - SERA LANGSTON DO Procedure Category Date Status Time Admit ADMIT 07/27/25 Transmitted 20:14 Code Status CODE 07/27/25 Transmitted 20:14 2 Gm Sodium Diet DIET 07/28/25 Transmitted Breakfast Hydrocodone-Acet PHA 07/27/25 In Process 5/325mg Tab ([place] 20:15 Ondansetron Hcl PHA 07/27/25 In Process (Zofran) 20:15 Condition: Serious YUMIKO 07/27/25 In Process 20:14 Acetaminophen Tablet PHA 07/27/25 In Process (Tylenol Tablet) 20:15 Nitroglycerin PHA 07/27/25 In Process Sublingual (Ntrostat 20:15 Morphine Sulfate PHA 07/27/25 In Process Injection 20:15 Stat Ekg For Chest YUMIKO 07/27/25 In Process Pain 20:14 Notify Md Of Changes YUMIKO 07/27/25 In Process From Base 20:14 Stain Applicator For YUMIKO 07/27/25 In Process 24 Hours 20:14 Emergency Dysrhythmia YUMIKO 07/27/25 In Process Protocol 20:14 Rhythm Strips Once YUMIKO 07/27/25 In Process Every Shift 20:14 Oxygen By Nasal RT 07/27/25 Transmitted Cannula 20:14 * Cardiology Consult CONS 07/27/25 Transmitted 20:16 Mrsa Screen DEBRA 07/27/25 Uncollected 23:32 Morphine Sulfate PHA 07/28/25 In Process Injection 05:00 SERA LANGSTON DO Jul 28, 2025 17:48
[2025-07-29] MEDS: SACUBITRIL-VALSARTAN 24mg/26mg TAB PO SCH (00:04)
[2025-07-29] MEDS: APIXABAN 5 MG TAB PO SCH (00:05)
--- NOTE | 2025-07-29 00:16 | DVHINCON2 ---
Date Seen: Jul 28, 2025 Referring Physician MD Dolly Reason for Consultation Elevated troponin levels History of Present Illness This is a 75-year-old male with a past medical history of congestive heart failure with HFrEF, unspecified atrial fibrillation (off DOAC therapy), hypertension, and chronic kidney disease who presented to the emergency room via EMS with a chief complaint of shortness of breath and increased anxiety on 07/27/2025. Upon arrival to the emergency room the patient underwent a 12 lead electrocardiogram revealing an atrial fibrillation rhythm with an associated left bundle branch block with ED physician activating a code STEMI which was canceled by me. This provider was at bedside at that time with the patient denying any chest pain and complaining of uneasiness, SOB, and extreme anxiety. Troponin levels peaked at 103 ng/L. Followed 12 lead electrocardiograms x3 did not reveal any progressive ST-T segment changes. At this time, the patient is providing almost no information and it is stating he is becoming very uneasy and anxious during evaluation. Chest x-ray shows cardiomegaly, increased interstitial prominence. Patient was admitted to the hospital. I am asked to consult on this patient. Past Medical History Unable to retrieve full past medical history. Past Surgical History Unable to retrieve past surgical history. Family History: Patient reports no known family medical history. Allergies: Coded Allergies: NO KNOWN ALLERGIES (Unverified , 07/14/25) Home Meds Reported Medications Meloxicam (Meloxicam) 7.5 Mg Tab, 1 TAB PO DAILY, #30 TAB 2 Refills 07/28/25 Quetiapine Fumerate (Seroquel) 50 Mg Tab, 1 TAB PO TID, #30 TAB 2 Refills 07/15/25 Famotidine (PEPCID TABLET) 20 Mg Tb, 1 TAB PO DAILY, #60 TAB 5 Refills 07/15/25 Tamsulosin Hcl (Flomax) 0.4 Mg Cap, CAP PO DAILY, #30 CAP 11 Refills 07/15/25 Divalproex Sodium (Depakote) 250 Mg Tab, 1 TAB PO BID, #60 TAB 2 Refills 07/15/25 Current Medications Current Medications Medications (Trade) Dose Ordered Sig/Efrain Route PRN Reason Start Time Stop Time Status Last Admin Enoxaparin Sodium (Lovenox) 40 mg DAILY SC 07/28/25 10:00 07/28/25 08:08 DC Morphine Sulfate 2 mg Q4HPRN PRN IV SEVERE PAIN (7-10 PAIN SCALE) 07/28/25 05:00 07/28/25 18:31 Enoxaparin Sodium (Lovenox) 90 mg Q12HR SC 07/28/25 10:00 07/28/25 20:43 DC Furosemide (Lasix Injection) 40 mg BIDD IV 07/28/25 18:00 07/28/25 17:30 Metoprolol Tartrate (Lopressor Tablet) 12.5 mg BID PO 07/28/25 10:00 Apixaban (Eliquis) 5 mg BID PO 07/28/25 22:00 Sacubitril/ Valsartan (Entresto 24-26 Mg tab) 1 tab BID PO 07/28/25 22:00 Spironolactone (Aldactone) 25 mg DAILY PO 07/29/25 10:00 Empaglifozin (Jardiance) 10 mg DAILY PO 07/29/25 10:00 Review of Systems Constitutional: No symptom reported Ears, Nose, & Throat: No symptom reported Eyes: No symptom reported Neurological: No symptoms reported Pulmonary/Respiratory: SOB Cardiovascular: No symptom reported Gastrointestinal: No symptom reported Genitourinary: No symptom reported Musculoskeletal: No symptom reported Skin: No symptom reported Psychiatric: Anxiety Endocrine: No symptom reported Hemotologic/Lymphatic: No symptom reported Vital Signs Vital Signs Date Time Temp Pulse Resp B/P (MAP) Pulse Ox O2 Delivery O2 Flow Rate FiO2 07/28/25 20:00 Room Air* 0 21 07/28/25 18:31 67 16 130/76 07/28/25 16:49 98.7 92 98.7 Physical Exam GENERAL: Alert and oriented x 3. No acute distress. EYES: PERRL, EOMI. Anicteric. HENT: Moist mucous membranes. LUNGS: Crackles to bilateral breath sounds. CARDIOVASCULAR: Irregular rate and rhythm. ABDOMEN: Soft, nontender and nondistended. EXTREMITIES: No edema. NEUROLOGIC: Extremely anxious, belligerent, uneasy, rambling thoughts. SKIN: Warm, dry. Labs/Diagnostic Data Labs Test 07/28/25 15:52 07/28/25 04:43 07/27/25 12:34 07/27/25 09:30 Range/Units Urine Color Yellow Yellow Urine Clarity Clear Clear Urine pH 5.0 5.0-9.0 Urine Specific [place] 1.022 1.001-1.035 Urine Protein 1+ H Negative Urine Ketones Negative Negative Urine Blood Negative Negative /uL Urine Nitrite Negative Negative Urine Bilirubin Negative Negative Urine Urobilinogen Normal Negative mg/dL Urine Leukocyte Esterase Negative Negative /uL Urine RBC 1 0 - 3 /hpf Urine Microscopic WBC 1 0-3 /HPF Urine Squamous Epithelial Cells None seen <5 /hpf Urine Bacteria None seen None Seen /hpf Urine Hyaline Casts Few 0 - 2 /lpf Urine Glucose Normal Normal mg/dL Urine Opiates Screen Pos NEGATIVE Urine Fentanyl Screen Neg NEGATIVE Urine Barbiturates Screen Neg NEGATIVE Urine Phencyclidine Screen Neg NEGATIVE Urine Amphetamines Screen Neg NEGATIVE Urine Benzodiazepines Screen Neg NEGATIVE Urine Cocaine Screen Neg NEGATIVE Urine Cannabinoids Screen Pos NEGATIVE White Blood Count 8.1 4.4-10.8 10^3/uL Red Blood Count 4.16 L 4.5-5.90 10^6/uL Hemoglobin 13.9 13.5-17.5 g/dL Hematocrit 41.3 41.0-53.0 % Mean Corpuscular Volume 99.2 80.0-100.0 fL Mean Corpuscular Hemoglobin 33.4 H 28.0-32.0 pg Mean Corpuscular Hemoglobin Concent 33.6 32.0-36.0 g/dL Red Cell Distribution Width 14.0 11.8-14.3 % Platelet Count 156 140-450 10^3/uL Mean Platelet Volume 8.9 6.9-10.8 fL Neutrophils (%) (Auto) 52.7 37.0-80.0 % Lymphocytes (%) (Auto) 35.9 10.0-50.0 % Monocytes (%) (Auto) 8.3 0.0-12.0 % Eosinophils (%) (Auto) 2.3 0.0-7.0 % Basophils (%) (Auto) 0.8 0.0-2.0 % Neutrophils # (Auto) 4.3 1.6-8.6 10 ^3/uL Lymphocytes # (Auto) 2.9 0.4-5.4 10 ^3/uL Monocytes # (Auto) 0.7 0-1.3 10 ^3/uL Eosinophils # (Auto) 0.2 0-0.8 10 ^3/uL Basophils # (Auto) 0.1 0-0.2 10 ^3/uL Nucleated Red Blood Cells 0.3 % Sodium Level 140 136-145 mmol/L Potassium Level 4.9 3.5-5.1 mmol/L Chloride Level 111 H 98-107 mmol/L Carbon Dioxide Level 22 20-31 mmol/L Anion Gap 7 5-15 Blood Urea Nitrogen 30 #H 9-23 mg/dL Creatinine 1.53 H 0.700-1.30 mg/dL Glomerular Filtration Rate Calc 48 >90 mL/min BUN/Creatinine Ratio 19.6 10.0-20.0 Serum Glucose 86 74-106 mg/dL Hemoglobin A1c 5.2 <5.7 % A1C Calcium Level 8.5 L 8.7-10.4 mg/dL Magnesium Level 2.3 1.6-2.6 mg/dL Total Bilirubin 0.6 0.2-1.0 mg/dL Aspartate Amino Transferase (AST) 28 13-40 U/L Alanine Aminotransferase (ALT) 20 7-40 U/L Alkaline Phosphatase 84 46-116 U/L B-Type Natriuretic Peptide 2301.07 0-100 pg/mL Total Protein 6.1 5.7-8.2 g/dL Albumin 3.6 3.2-4.8 g/dL Triglycerides Level 98 < 150 mg/dL Cholesterol Level 140 < 200 mg/dL LDL Cholesterol 83 < 100 mg/dL HDL Cholesterol 41 40-59 mg/dL Thyroid Stimulating Hormone (TSH) 1.50 0.55-4.78 uIU/mL Troponin I High Sensitivity 93 *H </=54 ng/L Prothrombin Time 13.4 H 9.3-11.8 sec Prothrombin Time INR 1.30 H 0.9-1.15 Activated Partial Thromboplast Time 29.9 24.5-34.5 SEC Assessment Acute on chronic decompensated HFrEF, NYHA Class IV. Atrial fibrillation with rapid ventricular rate, now rate controlled (off DOACs). Acute hypoxic respiratory failure. NSTEMI, likely type 2 secondary to above. 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 Biventricular heart failure. Left bundle branch block. Low-flow, low-gradient severe aortic stenosis. Severe aortic/mitral regurgitation. 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 LAWSON on CKD. +Cannabis. Plan/Recommendation I agree with your ongoing assessment and care of plan. Patient has been seen by Chichi Small NP on my behalf, her and I discussed the plan with the patient. A transthoracic echocardiogram revealed an LVEF of 10%, end-stage dilated cardiomyopathy, right ventricular dysfunction, biatrial enlargement, likely severe with probable low-flow, severe aortic regurgitation, severe mitral regurgitation. Multiple 12 lead electrocardiogram revealed an atrial fibrillation rhythm with an associated left bundle branch block. Serial troponin levels peaked at 145 ng/L. BNP level 2300s. The patient could potentially benefit from a right and left cardiac catheterization and coronary angiogram to further assess aortic valve and rule out coronary ischemia. Not indicated at this time given uncooperative behavior. In the meantime, initiate GDMT for HFrEF and titrate as tolerated. Initiate preload and afterload reduction, strict I&Os, daily weight, and jimbo ntain fluid restrictions. Given unknown onset of a-fib and lack of DOAC therapy, avoid antiarrhythmic agents. Continue rate control with beta-blockers, avoid CCBs. Initiate Eliquis therapy BID, [id number] Score 3 points. Monitor ECG changes closely and notify accordingly. Unable to perform a full evaluation given the patient's non-cooperative behavior. Highly suspected for an undiagnosed psych disorder which is hindering the patient's overall care. Consider a Psych consultation. Additional plan as per the hospital course. Plan discussed with: Patient NYHA Physical activity limitations: Class4(Severe)discomfort Date of Service: Jul 28, 2025 Billing Provider: JENNIFER BIRD MD Cardiology Common Codes: 60325-PHWDFRX INP/OBS CARE (High) Cardiology Consultation Codes: 67466-[id number] CONSULT <45MIN JENNIFER BIRD MD Jul 28, 2025 22:46
[2025-07-29 01:00] VITALS: BP 110/83; PULSE 95; RESP 15; TEMP 97.6; O2SAT 87
[2025-07-29 08:00] VITALS: PULSE 84
[2025-07-29] MEDS ORDERED: SPIR25TA PO (08:57)
[2025-07-29] MEDS ORDERED: MET25T PO (08:57)
[2025-07-29] MEDS ORDERED: APIX5TAB PO (08:57)
[2025-07-29] MEDS: EMPAGLIFLOZIN 10 MG TAB PO SCH (08:57)
[2025-07-29] MEDS ORDERED: SACU1TAB PO (08:57)
[2025-07-29] MEDS ORDERED: EMPA1TAB PO (08:57)
--- NOTE | 2025-07-29 08:58 | DVHDS2 ---
Discharge Summary Date of Admission Jul 27, 2025 at 20:14 Date of Discharge: Jul 29, 2025 Labs/Diagnostic Data: Laboratory Results Test 07/28/25 15:52 07/28/25 04:43 07/27/25 12:34 07/27/25 09:30 Urine Color Yellow (Yellow) Urine Clarity Clear (Clear) Urine pH 5.0 (5.0-9.0) Urine Specific [place] 1.022 (1.001-1.035) Urine Protein 1+ (Negative) Urine Ketones Negative (Negative) Urine Blood Negative /uL (Negative) Urine Nitrite Negative (Negative) Urine Bilirubin Negative (Negative) Urine Urobilinogen Normal mg/dL (Negative) Urine Leukocyte Esterase Negative /uL (Negative) Urine RBC 1 /hpf (0 - 3) Urine Microscopic WBC 1 /HPF (0-3) Urine Squamous Epithelial Cells None seen /hpf (<5) Urine Bacteria None seen /hpf (None Seen) Urine Hyaline Casts Few /lpf (0 - 2) Urine Glucose Normal mg/dL (Normal) Urine Opiates Screen Pos (NEGATIVE) Urine Fentanyl Screen Neg (NEGATIVE) Urine Barbiturates Screen Neg (NEGATIVE) Urine Phencyclidine Screen Neg (NEGATIVE) Urine Amphetamines Screen Neg (NEGATIVE) Urine Benzodiazepines Screen Neg (NEGATIVE) Urine Cocaine Screen Neg (NEGATIVE) Urine Cannabinoids Screen Pos (NEGATIVE) White Blood Count 8.1 10^3/uL (4.4-10.8) Red Blood Count 4.16 10^6/uL (4.5-5.90) Hemoglobin 13.9 g/dL (13.5-17.5) Hematocrit 41.3 % (41.0-53.0) Mean Corpuscular Volume 99.2 fL (80.0-100.0) Mean Corpuscular Hemoglobin 33.4 pg (28.0-32.0) Mean Corpuscular Hemoglobin Concent 33.6 g/dL (32.0-36.0) Red Cell Distribution Width 14.0 % (11.8-14.3) Platelet Count 156 10^3/uL (140-450) Mean Platelet Volume 8.9 fL (6.9-10.8) Neutrophils (%) (Auto) 52.7 % (37.0-80.0) Lymphocytes (%) (Auto) 35.9 % (10.0-50.0) Monocytes (%) (Auto) 8.3 % (0.0-12.0) Eosinophils (%) (Auto) 2.3 % (0.0-7.0) Basophils (%) (Auto) 0.8 % (0.0-2.0) Neutrophils # (Auto) 4.3 10 ^3/uL (1.6-8.6) Lymphocytes # (Auto) 2.9 10 ^3/uL (0.4-5.4) Monocytes # (Auto) 0.7 10 ^3/uL (0-1.3) Eosinophils # (Auto) 0.2 10 ^3/uL (0-0.8) Basophils # (Auto) 0.1 10 ^3/uL (0-0.2) Nucleated Red Blood Cells 0.3 % Sodium Level 140 mmol/L (136-145) Potassium Level 4.9 mmol/L (3.5-5.1) Chloride Level 111 mmol/L (98-107) Carbon Dioxide Level 22 mmol/L (20-31) Anion Gap 7 (5-15) Blood Urea Nitrogen 30 mg/dL (9-23) Creatinine 1.53 mg/dL (0.700-1.30) Glomerular Filtration Rate Calc 48 mL/min (>90) BUN/Creatinine Ratio 19.6 (10.0-20.0) Serum Glucose 86 mg/dL (74-106) Hemoglobin A1c 5.2 % A1C (<5.7) Calcium Level 8.5 mg/dL (8.7-10.4) Magnesium Level 2.3 mg/dL (1.6-2.6) Total Bilirubin 0.6 mg/dL (0.2-1.0) Aspartate Amino Transferase (AST) 28 U/L (13-40) Alanine Aminotransferase (ALT) 20 U/L (7-40) Alkaline Phosphatase 84 U/L (46-116) B-Type Natriuretic Peptide 2301.07 pg/mL (0-100) Total Protein 6.1 g/dL (5.7-8.2) Albumin 3.6 g/dL (3.2-4.8) Triglycerides Level 98 mg/dL (< 150) Cholesterol Level 140 mg/dL (< 200) LDL Cholesterol 83 mg/dL (< 100) HDL Cholesterol 41 mg/dL (40-59) Thyroid Stimulating Hormone (TSH) 1.50 uIU/mL (0.55-4.78) Troponin I High Sensitivity 93 ng/L (</=54) Prothrombin Time 13.4 sec (9.3-11.8) Prothrombin Time INR 1.30 (0.9-1.15) Activated Partial Thromboplast Time 29.9 SEC (24.5-34.5) Other Laboratory Tests 07/28/25 04:43 Brief Hx & Hospital Course: 75 y/o M, BIBA, with PMHx of HTN, VA, and chronic hepatitis presents to the ED for CC of shortness of breath. EMS reports, patient is coming from home where he c/o shortness of breath with associated symptoms of faintness x1week. Per EMS, EKG obtained in the field showed ST-Elevation in leads V3-V% with AFib/RVR. In the field, patient was given 325mg of Aspirin with no significant changes in symptoms. Patient denies chest pain, palpitations, nausea, vomiting, headache, or flu-like symptoms. short of breath acute hpoxic resp failure HTN CAD with VA chronic hepatitis Acute on chronic decompensated HFrEF, NYHA Class IV. Atrial fibrillation with rapid ventricular rate, now rate controlled (off DOACs). Acute hypoxic respiratory failure. NSTEMI, likely type 2 secondary to above. 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 Biventricular heart failure. Left bundle branch block. Low-flow, low-gradient severe aortic stenosis. Severe aortic/mitral regurgitation. 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 LAWSON on CKD. +Cannabis. Condition at Discharge: Fair Final Diagnosis/Problems List see above Discharge Disposition: Assisted Living Facility Discharge Instruct/Medications Diet: Cardiac 2g Na,low cholest Activity: No Restrictions, As Tolerated Scheduled Apixaban Base (Eliquis), 5 MG PO BID Divalproex Sodium (Depakote), 1 TAB PO BID, (Reported) Empagliflozin (Jardiance), 10 MG PO DAILY Famotidine (Pepcid Tablet), 1 TAB PO DAILY, (Reported) Meloxicam (Meloxicam), 1 TAB PO DAILY, (Reported) Metoprolol Tartrate (Lopressor), 12.5 MG PO BID Quetiapine Fumerate (Seroquel), 1 TAB PO TID, (Reported) Sacubitril-Valsartan (Entresto 24-26 mg), 1 TAB PO BID Spironolactone (Aldactone), 25 MG PO DAILY Tamsulosin Hcl (Flomax), CAP PO DAILY, (Reported) Discharge Statement: "Patient was advised to return to the ER or call 911 if any headaches, dizziness, shortness of breath, chest pain, abdominal pain, bleeding, fevers, or worsening of medical condition. Patient was counseled about treatment plan, medications, possible side effects, patientverbalized understanding. All questions were answered to the best of my ability. This discharge took greater then 30 minutes in planning, reviewing documentation, counseling the patient, and discussing with other team members." ASSESSMENT ASSESSMENT Assessment SERA LANGSTON DO Jul 29, 2025 08:58
[2025-07-29] MEDS: SPIRONOLACTONE 25 MG TAB PO SCH (09:00)
[2025-07-29 09:25] VITALS: BP 123/107; PULSE 88; RESP 20; O2SAT 89
[2025-07-29 11:52] VITALS: BP 100/78; PULSE 78; RESP 20; TEMP 97.5; O2SAT 94
--- NOTE | 2025-07-29 20:59 | DVHPN2 ---
Progress Note - Dictate Date Seen: Jul 29, 2025 Medical Necessity Reason Pt with a Central, PICC or Fol: No Subjective Patient was seen and evaluated in follow up. No overnight events. Patient stable on room air. Patient denies any cardiac symptoms. Patient is cardiac stable for discharge. vital signs Vital Sign Date Time Temp Pulse Resp B/P (MAP) Pulse Ox O2 Delivery O2 Flow Rate FiO2 07/29/25 11:52 97.5 78 20 100/78 (85) 94 97.5 07/29/25 07:30 Room Air* 0 21 Total Intake and Output 07/28/25 07/28/25 07/29/25 14:59 22:59 06:59 Intake Total 1250 ml 420 ml Balance 1250 ml 420 ml objective GENERAL: Alert and oriented x 3. No acute distress. EYES: PERRL, EOMI. Anicteric. HENT: Moist mucous membranes. LUNGS: Crackles to bilateral breath sounds. CARDIOVASCULAR: Irregular rate and rhythm. ABDOMEN: Soft, nontender and nondistended. EXTREMITIES: No edema. NEUROLOGIC: Extremely anxious, belligerent, uneasy, rambling thoughts. SKIN: Warm, dry. laboratory and microbiology Laboratory Tests 07/28/25 04:43 Test 07/28/25 04:43 Range/Units Serum Glucose 86 74-106 mg/dL Problem List Acute on chronic decompensated HFrEF, NYHA Class IV. Atrial fibrillation with rapid ventricular rate, now rate controlled (off DOACs). Acute hypoxic respiratory failure. NSTEMI, likely type 2 secondary to above. 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 Biventricular heart failure. Left bundle branch block. Low-flow, low-gradient severe aortic stenosis. Severe aortic/mitral regurgitation. 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 LAWSON on CKD. +Cannabis. Assessment/Plan Continued all current supportive medical care. Entresto. Eliquis. Diuretics with Lasix. Metoprolol. DVT prophylactics. Morphine and [place] for pain management. Additional plan as per the hospital course. Plan discussed with: Patient JENNIFER BIRD MD Jul 29, 2025 15:52
== END 2025-07-29 14:36 | disposition home or self-care (01) | DRG 280 ==
LOC: EDBD 09:21 → ER 09:21 → OVERFLOW 20:14 → WEST WING 22:43
PROVIDERS: ADMIT Internal Medicine; ATTEND Internal Medicine
DX: I13.0 Hypertensive heart and chronic kidney disease with heart failure and stage 1 through stage 4 chronic kidney disease, or unspecified chronic kidney disease (principal); I50.23 Acute on chronic systolic (congestive) heart failure; I21.A1 Myocardial infarction type 2; J96.01 Acute respiratory failure with hypoxia; K73.9 Chronic hepatitis, unspecified; N17.9 Acute kidney failure, unspecified; Z79.01 Long term (current) use of anticoagulants; N18.9 Chronic kidney disease, unspecified; I08.0 Rheumatic disorders of both mitral and aortic valves; I42.0 Dilated cardiomyopathy; I48.91 Unspecified atrial fibrillation; I50.82 Biventricular heart failure; I44.7 Left bundle-branch block, unspecified; I25.10 Atherosclerotic heart disease of native coronary artery without angina pectoris; F41.9 Anxiety disorder, unspecified; Z79.84 Long term (current) use of oral hypoglycemic drugs; Z79.899 Other long term (current) drug therapy
CPT/HCPCS: 36415; 71045; 80053; 80061; 80307; 81001; 83036; 83735; 83880; 84443; 84484; 85025; 85610; 85730; 86850; 86900; 86901; 93005; 99291; G0378; J2405